=== PATIENT | male | born 1945 | race Caucasian/White ===

== ENCOUNTER 2017-06-24 09:36 | Inpatient (IN) | payer MEDICARE, OTHER ==
[2017-06-24] VITALS (12 sets, daily range): BP systolic 96–140; BP diastolic 53–68; PULSE 89–116; RESP 16–22; TEMP 97.2–103; O2SAT 88–99
[~2017-06-24] VITALS: Ht 185.4 cm; Wt 124.3 kg
--- NOTE | 2017-06-24 10:08 | PD ---
HPI Chief Complaint: Complaint Time Seen by Provider: 09:52 Travel History International Travel<30 days: No Contact w/Intl Traveler<30days: No Traveled to known affect area: No History of Present Illness HPI 72-year-old male normally living in [facility] here as a snowbird, presents emergency department with history of intermittent abdominal discomfort , nausea, 2 episodes of vomiting last evening, and question of hematuria with dark blood for the past 4 days. Denies flank pain or burning with urination. Patient has history of diverticulitis in the distant past, history of prostate cancer with total prostatectomy, denies history of gastritis, kidney stones, in the past. Patient states his pain is intermittent and in the lower quadrants and nonspecific. [place] well for approximately 2 weeks altogether, but worse in the last 4 days. He denies chest pain or cough or shortness of breath. Patient is a poor historian. Patient has no known drug allergies. [facility] Social History Alcohol Use: Yes Tobacco Use: No Substance Use: No Allergies-Medications (Allergen,Severity, Reaction): Coded Allergies: No Known Allergies (Unverified , 06/24/17) Reported Meds & Prescriptions Reported Meds & Active Scripts Active Reported Meloxicam 7.5 Mg Tab 7.5 Mg PO DAILY Losartan (Losartan Potassium) 25 Mg Tab 25 Mg PO DAILY Review of Systems ROS Limitations: Poor Historian Except as stated in HPI: all other systems reviewed are Neg General / Constitutional: Positive: Chills, No: Fever Eyes: No: Visual changes HENT: No: Headaches Cardiovascular: No: Chest Pain or Discomfort Respiratory: No: Shortness of Breath Gastrointestinal: Positive: Nausea, Vomiting, Abdominal Pain (See history of present illness mild intermittent), Loss of Appetite, No: Diarrhea, Hematemesis , Hematochezia, Constipation Genitourinary: Positive: Hematuria, No: Urgency, Frequency (See history of present illness), Dysuria, Nocturia, Decreased Urinary Output, Hesitancy, Dribbling, Incontinence Musculoskeletal: No: Myalgias, Arthralgias, Limited ROM, Pain Skin: No Rash Neurologic: No: Weakness Psychiatric: No: Depression Endocrine: No: Polydipsia Hematologic/Lymphatic: No: Easy Bruising Physical Exam Exam Limitations: Poor Historian Narrative GENERAL: Patient appears in no obvious distress. SKIN: Warm and dry. Normal color. Normal turgor. HEAD: Atraumatic. Normocephalic. EYES: Pupils equal and round. No scleral icterus. No injection or drainage. ENT: No nasal bleeding or discharge. Mucous membranes pink and moist. Pharynx is clear. Airways patent NECK: Trachea midline. Supple and nontender. CARDIOVASCULAR: Regular rate and rhythm. No murmurs gallops or rubs appreciated RESPIRATORY: No accessory muscle use. Clear to auscultation. Breath sounds equal bilaterally. GASTROINTESTINAL: Abdomen soft, mild if any nonspecific tenderness, nondistended. Hepatic and splenic margins not palpable. No CVA tenderness. MUSCULOSKELETAL: Extremities without clubbing, cyanosis, or edema. No obvious deformities. NEUROLOGICAL: Awake and alert. No obvious cranial nerve deficits. Motor grossly within normal limits. Five out of 5 muscle strength in the arms and legs. Normal speech. PSYCHIATRIC: Appropriate mood and affect; insight and judgment normal. Data Data Last Documented VS Vital Signs Date Time Temp Pulse Resp B/P (MAP) Pulse Ox O2 Delivery O2 Flow Rate FiO2 06/24/17 12:35 89 16 116/65 (82) 98 Room Air 06/24/17 09:38 99.0 Orders Orders Urinalysis - C+S If Indicated (06/24/17 09:54) Complete Blood Count With Diff (06/24/17 10:09) Comprehensive Metabolic Panel (06/24/17 10:09) Lipase (06/24/17 10:09) Lactic Acid (06/24/17 10:09) Prothrombin Time / Inr (Pt) (06/24/17 10:09) Act Partial Throm Time (Ptt) (06/24/17 10:09) Ct Abd/Pel W Iv Contrast(Rout) (06/24/17 10:09) Iv Access Insert/Monitor (06/24/17 10:09) Ecg Monitoring (06/24/17 10:09) Oximetry (06/24/17 10:09) NPO (06/24/17 10:09) Ondansetron Inj (Zofran Inj) (06/24/17 10:15) Sodium Chlor 0.9% 1000 Ml Inj (Ns 1000 M (06/24/17 10:09) Sodium Chloride 0.9% Flush (Ns Flush) (06/24/17 10:15) Chest, Single Ap (06/24/17 10:14) Urine Culture (06/24/17 10:15) Blood Culture (06/24/17 11:39) Piperacil-Tazo 4.5 Gm Premix (Zosyn 4.5 (06/24/17 11:45) Vancomycin Inj (Vancomycin Inj) (06/24/17 11:45) Iohexol 350 Inj (Omnipaque 350 Inj) (06/24/17 12:10) Admit Order (Ed Use Only) (06/24/17 13:16) Labs Laboratory Tests Test 06/24/17 10:15 06/24/17 10:20 White Blood Count 18.0 TH/MM3 Red Blood Count 3.82 MIL/MM3 Hemoglobin 12.5 GM/DL Hematocrit 34.7 % Mean Corpuscular Volume 90.8 FL Mean Corpuscular Hemoglobin 32.7 PG Mean Corpuscular Hemoglobin Concent 36.0 % Red Cell Distribution Width 15.0 % Platelet Count 181 TH/MM3 Mean Platelet Volume 7.1 FL Neutrophils (%) (Auto) 85.9 % Lymphocytes (%) (Auto) 5.1 % Monocytes (%) (Auto) 8.8 % Eosinophils (%) (Auto) 0.0 % Basophils (%) (Auto) 0.2 % Neutrophils # (Auto) 15.4 TH/MM3 Lymphocytes # (Auto) 0.9 TH/MM3 Monocytes # (Auto) 1.6 TH/MM3 Eosinophils # (Auto) 0.0 TH/MM3 Basophils # (Auto) 0.0 TH/MM3 CBC Comment AUTO DIFF Differential Total Cells Counted 100 Neutrophils % (Manual) 59 % Band Neutrophils % 27 % Lymphocytes % 3 % Monocytes % 10 % Neutrophils # (Manual) 15.7 TH/MM3 Metamyelocytes 1 % Differential Comment FINAL DIFF MANUAL Platelet Estimate NORMAL Platelet Morphology Comment NORMAL Red Cell Morphology Comment NORMAL Prothrombin Time 12.4 SEC Prothromb Time International Ratio 1.2 RATIO Activated Partial Thromboplast Time 26.8 SEC Urine Color DARK-RED Urine Turbidity MARKED Urine pH 6.0 Urine Specific [place] 1.023 Urine Protein 100 mg/dL Urine Glucose (UA) NEG mg/dL Urine Ketones TRACE mg/dL Urine Occult Blood LARGE Urine Nitrite NEG Urine Bilirubin NEG Urine Urobilinogen 2.0 MG/DL Urine Leukocyte Esterase NEG Urine RBC /hpf Urine WBC /hpf Urine WBC Clumps OCC Urine Bacteria MANY /hpf Urine Mucus FEW /lpf Urine Yeast (Budding) FEW Microscopic Urinalysis Comment CULTURE INDICATED Blood Urea Nitrogen 23 MG/DL Creatinine 1.24 MG/DL Random Glucose 176 MG/DL Total Protein 7.8 GM/DL Albumin 3.7 GM/DL Calcium Level 8.3 MG/DL Alkaline Phosphatase 65 U/L Aspartate Amino Transf (AST/SGOT) 26 U/L Alanine Aminotransferase (ALT/SGPT) 28 U/L Total Bilirubin 1.0 MG/DL Sodium Level 135 MEQ/L Potassium Level 3.5 MEQ/L Chloride Level 100 MEQ/L Carbon Dioxide Level 25.9 MEQ/L Anion Gap 9 MEQ/L Estimat Glomerular Filtration Rate 57 ML/MIN Lipase 838 U/L Lactic Acid Level 1.9 mmol/L MDM Medical Decision Making Medical Screen Exam Complete: Yes Emergency Medical Condition: Yes Differential Diagnosis Urinary tract infection. Hematuria. Kidney cancer. Possible metastatic prostate cancer. Diverticulitis. Pancreatitis. Gallbladder disease. Narrative Course Patient is very vague in his history and on exam. Labs ordered including CBC, CMP, lactic acid, lipase, and urinalysis. Abdominal/pelvis CT with IV contrast is ordered. Chest x-ray shows no acute process per radiologist. IV access is obtained and the patient is given 1000 mL normal saline bolus as well as 4 mg Zofran IV. Patient is not requesting any pain medicine currently. CBC significant for leukocytosis of 18.0, RBC is 3.82, hemoglobin is 12.5, hematocrit 34.7. Neutrophils of 85.9% Coagulation shows PT of 12.4, INR is 1.2. Chemistries significant for sodium of 135, BUN 23, GFR is 57, random glucose 176 , calcium is 8.3, and lipase is elevated at 838. Lactic acid is normal at 1.9 Urinalysis is dark red with marked turbidity, specific gravity 1.023, patient's greater than 100 protein, trace ketones, large occult blood with occasional white blood cell clumps per high-powered field. Many bacteria, and a few yeast. Urine culture is placed. Blood cultures 2 are ordered, and patient is given 4.5 mg Zosyn IV as well as [address] scan shows: FINDINGS: Lung base is are clear. Extensive coronary artery calcifications are noted. Moderate fatty replacement of the liver with 2 large well-circumscribed lesions evident probably cysts. The largest of these is in the left lobe and measures 4.9 cm. Spleen and pancreas are unremarkable Scattered small right renal cysts are evident with enlarged 7.3 cm cyst lower pole. Left kidney: 1 cm obstructing stone at left UVJ with perinephric stranding. Smaller 1 mm stone upper pole left kidney Marked perinephric stranding. 4.6 and her lower pole cysts. Retroperitoneum is unremarkable Scattered diverticuli in the pelvis scattered phleboliths Bladder decompressed Findings and patient discussed with Dr. aSul who sees the patient as well. Additional 1000 mL normal saline bolus was ordered. Call was placed to the hospitalist for admission. Sepsis Criteria SIRS Criteria (2 or more): Heart rate over 90, WBC > 07039, < 4000 or > 10% bands Sepsis Criteria (SIRS+source): Infect source susp/known Criteria Outcome: Meets SIRS criteria, Meets sepsis criteria Diagnosis Primary Impression: Sepsis Qualified Codes: A41.9 - Sepsis, unspecified organism Additional Impressions: Urinary tract infection Qualified Codes: N30.01 - Acute cystitis with hematuria Urinary tract obstruction by kidney stone Admitting Information Admitting Physician Requests: Admit Condition: Stable Martin Grissom Jun 24, 2017 10:08
[2017-06-24] MEDS ORDERED: SODIUM CHLOR 0.9% 1000 ML INJ 1,000 ML IV SCH (10:09)
[2017-06-24] MEDS ORDERED: LOSA25TA PO (10:10)
[2017-06-24] MEDS ORDERED: MELO7.5T27 PO (10:10)
[2017-06-24] MEDS ORDERED: SODIUM CHLORIDE 0.9% FLUSH 10 ML FLUSH IV FLUSH PRN (10:15)
[2017-06-24] MEDS ORDERED: ONDANSETRON HCL 4 MG/2 ML VIAL IVP ONE (10:15)
[2017-06-24 10:40] LABS: AUTOMATED NEUTROPHIL # 15.4 TH/MM3 (1.8-7.7); BASOPHIL % 0.2 % (0.0-2.0); HEMATOCRIT 34.7 % (39.0-51.0); HEMOGLOBIN 12.5 GM/DL (13.0-17.0); LYMPH % 5.1 % (9.0-44.0); LYMPHOCYTE # 0.9 TH/MM3 (1.0-4.8); MEAN CELL VOLUME 90.8 FL (80.0-100.0); MEAN CORPUSCULAR HEMOGLOBIN 32.7 PG (27.0-34.0); MEAN PLATELET VOLUME 7.1 FL (7.0-11.0); MONO % 8.8 % (0.0-8.0); MONOCYTE # 1.6 TH/MM3 (0-0.9); NEUT % 85.9 % (16.0-70.0); PLATELET COUNT 181 TH/MM3 (150-450); RED BLOOD COUNT 3.82 MIL/MM3 (4.50-5.90)
[2017-06-24 10:47] LABS: INTERNATIONAL NORMALIZED RATIO 1.2 RATIO; PROTHROMBIN TIME - PATIENT 12.4 SEC (9.8-11.6)
--- NOTE | 2017-06-24 10:51 | RADRPT ---
EXAM DATE/TIME: 06/24/2017 10:42 [facility] COMPARISON: No previous studies available for comparison. INDICATIONS : Cough. MEDICAL HISTORY : Carcinoma, prostatic. Hypertension SURGICAL HISTORY : None. ENCOUNTER: Initial ACUITY: 1 week PAIN SCORE: 0/10 LOCATION: Bilateral chest FINDINGS: The lungs are clear. The heart is minimally enlarged. The pulmonary vascularity is normal. There is n o evidence for infiltrate or failure. The portion of the bony skeleton visualized is unremarkable. CONCLUSION: Compensated cardiomegaly otherwise negative . Ayaz Salter MD FACR on June 24, 2017 at 10:48 Board Certified Radiologist. This report was verified electronically.
[2017-06-24 11:00] LABS: ALBUMIN 3.7 GM/DL (3.4-5.0); ALT (GPT) 28 U/L (12-78); AST (GOT) 26 U/L (15-37); BICARBONATE 25.9 MEQ/L (21.0-32.0); BLOOD UREA NITROGEN 23 MG/DL (7-18); CALCIUM 8.3 MG/DL (8.5-10.1); CHLORIDE 100 MEQ/L (98-107); CREATININE 1.24 MG/DL (0.60-1.30); GLOMERULAR FILTRATION RATE 57 ML/MIN (>89); GLUCOSE,RANDOM 176 MG/DL (74-106); SODIUM (NA) 135 MEQ/L (136-145)
[2017-06-24 11:02] LABS: ALKALINE PHOSPHATASE 65 U/L (45-117); TOTAL PROTEIN 7.8 GM/DL (6.4-8.2)
[2017-06-24 11:19] LABS: BACTERIA, URINE MANY /hpf; BILIRUBIN, URINE NEG (NEG); BLOOD, URINE LARGE (NEG); GLUCOSE,URINE NEG (NEG); KETONE, URINE TRACE mg/dL (NEG); MUCUS URINE FEW /lpf (OCC); NITRITE,URINE NEG (NEG); URINE LEUKOCYTE ESTERASE NEG (NEG); WHITE BLOOD CELL CLUMPS OCC
[2017-06-24 11:23] LABS: URINE COLOR DARK-RED (YELLW/STRAW)
[2017-06-24 11:41] LABS: BANDS 27 % (0-6); LYMPHOCYTES 3 % (9-44); METAMYELOCYTES 1 % (0-1); MONOCYTES 10 % (0-8); NEUTROPHIL # MANUAL DIFF 15.7 TH/MM3 (1.8-7.7); POLYS (SEG NEUTROPHILS) 59 % (16-70)
[2017-06-24] MEDS ORDERED: PIPERACIL-TAZO 4.5 GM PREMIX 100 ML IV ONE (11:45)
[2017-06-24] MEDS ORDERED: VANCOMYCIN INJ 1,000 MG in SODIUM CHLOR 0.9% 250 ML INJ 250 ML IV ONE (11:45)
[2017-06-24] MEDS ORDERED: IOHEXOL 350 MG/ML 10 ML VIAL (for RAD DIAG) IVCONTRAST ONE (12:10)
--- NOTE | 2017-06-24 12:29 | RADRPT ---
EXAM DATE/TIME: 06/24/2017 11:55 [facility] COMPARISON: No previous studies available for comparison. INDICATIONS : Hematuria today. IV CONTRAST: 97 cc Omnipaque 350 (iohexol) IV ORAL CONTRAST: No oral contrast ingested. RADIATION DOSE: 15.94 CTDIvol (mGy) MEDICAL HISTORY : Hypertension. Carcinoma, prostate. SURGICAL HISTORY : Prostatectomy. ENCOUNTER: Initial ACUITY: 1 day PAIN SCALE: 0/10 LOCATION: flank TECHNIQUE: Volumetric scanning of the abdomen and pelvis was performed. Using automated exposure control and ad justment of the mA and/or kV according to patient size, radiation dose was kept as low as reasonably achievable to obtain optimal diagnostic quality images. DICOM format image data is available electro nically for review and comparison. FINDINGS: Lung base is are clear. Extensive coronary artery calcifications are noted. Moderate fatty replacement of the liver with 2 large well-circumscribed lesions evident probably cyst s. The largest of these is in the left lobe and measures 4.9 cm. Spleen and pancreas are unremarkable Scattered small right renal cysts are evident with enlarged 7.3 cm cyst lower pole. Left kidney: 1 cm obstructing stone at left UVJ with perinephric stranding. Smaller 1 mm stone upper pole left ki dney Marked perinephric stranding. 4.6 and her lower pole cysts. Retroperitoneum is unremarkable Scattered diverticuli in the pelvis scattered phleboliths Bladder decompressed CONCLUSION: Obstructing 1 cm stone left UVJ with moderate perinephric stranding. 1 cm stone remaining upper pole Bilateral renal cysts Ayaz Salter MD FACR on June 24, 2017 at 12:20 Board Certified Radiologist. This report was verified electronically.
[2017-06-24] MEDS ORDERED: ONDANSETRON HCL 4 MG/2 ML VIAL IVP PRN (13:30)
[2017-06-24] MEDS ORDERED: BISACODYL 10 MG SUPP RECTAL PRN (13:30)
[2017-06-24] MEDS ORDERED: MAGNESIUM HYDROXIDE SUSP 30 ML CUP PO PRN (13:30)
[2017-06-24] MEDS ORDERED: SENNOSIDES 8.6 MG TAB PO PRN (13:30)
[2017-06-24] MEDS ORDERED: LACTULOSE SYRUP 20 GM/30 ML CUP PO PRN (13:30)
[2017-06-24] MEDS ORDERED: NALOXONE HCL 0.4 MG/ML AMP IV PUSH PRN (13:30)
--- NOTE | 2017-06-24 13:57 | PD ---
Data Data Last Documented VS Vital Signs Date Time Temp Pulse Resp B/P (MAP) Pulse Ox O2 Delivery O2 Flow Rate FiO2 06/24/17 12:35 89 16 116/65 (82) 98 Room Air 06/24/17 09:38 99.0 Orders Orders Urinalysis - C+S If Indicated (06/24/17 09:54) Complete Blood Count With Diff (06/24/17 10:09) Comprehensive Metabolic Panel (06/24/17 10:09) Lipase (06/24/17 10:09) Lactic Acid (06/24/17 10:09) Prothrombin Time / Inr (Pt) (06/24/17 10:09) Act Partial Throm Time (Ptt) (06/24/17 10:09) Ct Abd/Pel W Iv Contrast(Rout) (06/24/17 10:09) Iv Access Insert/Monitor (06/24/17 10:09) Ecg Monitoring (06/24/17 10:09) Oximetry (06/24/17 10:09) NPO (06/24/17 10:09) Ondansetron Inj (Zofran Inj) (06/24/17 10:15) Sodium Chlor 0.9% 1000 Ml Inj (Ns 1000 M (06/24/17 10:09) Sodium Chloride 0.9% Flush (Ns Flush) (06/24/17 10:15) Chest, Single Ap (06/24/17 10:14) Urine Culture (06/24/17 10:15) Blood Culture (06/24/17 11:39) Piperacil-Tazo 4.5 Gm Premix (Zosyn 4.5 (06/24/17 11:45) Vancomycin Inj (Vancomycin Inj) (06/24/17 11:45) Iohexol 350 Inj (Omnipaque 350 Inj) (06/24/17 12:10) Admit Order (Ed Use Only) (06/24/17 13:16) Labs Laboratory Tests Test 06/24/17 10:15 06/24/17 10:20 White Blood Count 18.0 TH/MM3 Red Blood Count 3.82 MIL/MM3 Hemoglobin 12.5 GM/DL Hematocrit 34.7 % Mean Corpuscular Volume 90.8 FL Mean Corpuscular Hemoglobin 32.7 PG Mean Corpuscular Hemoglobin Concent 36.0 % Red Cell Distribution Width 15.0 % Platelet Count 181 TH/MM3 Mean Platelet Volume 7.1 FL Neutrophils (%) (Auto) 85.9 % Lymphocytes (%) (Auto) 5.1 % Monocytes (%) (Auto) 8.8 % Eosinophils (%) (Auto) 0.0 % Basophils (%) (Auto) 0.2 % Neutrophils # (Auto) 15.4 TH/MM3 Lymphocytes # (Auto) 0.9 TH/MM3 Monocytes # (Auto) 1.6 TH/MM3 Eosinophils # (Auto) 0.0 TH/MM3 Basophils # (Auto) 0.0 TH/MM3 CBC Comment AUTO DIFF Differential Total Cells Counted 100 Neutrophils % (Manual) 59 % Band Neutrophils % 27 % Lymphocytes % 3 % Monocytes % 10 % Neutrophils # (Manual) 15.7 TH/MM3 Metamyelocytes 1 % Differential Comment FINAL DIFF MANUAL Platelet Estimate NORMAL Platelet Morphology Comment NORMAL Red Cell Morphology Comment NORMAL Prothrombin Time 12.4 SEC Prothromb Time International Ratio 1.2 RATIO Activated Partial Thromboplast Time 26.8 SEC Urine Color DARK-RED Urine Turbidity MARKED Urine pH 6.0 Urine Specific [place] 1.023 Urine Protein 100 mg/dL Urine Glucose (UA) NEG mg/dL Urine Ketones TRACE mg/dL Urine Occult Blood LARGE Urine Nitrite NEG Urine Bilirubin NEG Urine Urobilinogen 2.0 MG/DL Urine Leukocyte Esterase NEG Urine RBC /hpf Urine WBC /hpf Urine WBC Clumps OCC Urine Bacteria MANY /hpf Urine Mucus FEW /lpf Urine Yeast (Budding) FEW Microscopic Urinalysis Comment CULTURE INDICATED Blood Urea Nitrogen 23 MG/DL Creatinine 1.24 MG/DL Random Glucose 176 MG/DL Total Protein 7.8 GM/DL Albumin 3.7 GM/DL Calcium Level 8.3 MG/DL Alkaline Phosphatase 65 U/L Aspartate Amino Transf (AST/SGOT) 26 U/L Alanine Aminotransferase (ALT/SGPT) 28 U/L Total Bilirubin 1.0 MG/DL Sodium Level 135 MEQ/L Potassium Level 3.5 MEQ/L Chloride Level 100 MEQ/L Carbon Dioxide Level 25.9 MEQ/L Anion Gap 9 MEQ/L Estimat Glomerular Filtration Rate 57 ML/MIN Lipase 838 U/L Lactic Acid Level 1.9 mmol/L MDM Supervised Visit with BERTA: Yes Narrative Course The history, exam, and medical decision-making in the associated midlevel provider note were completed with my assistance. I reviewed and agree with the findings presented. I attest that I had a [id number] encounter with the patient on the same day, and personally performed and documented my assessment and findings in the medical record. *My assessment and Findings: This is a 72-year-old male who presents to the emergency department with generalized weakness, malaise, some urinary symptoms and abdominal discomfort. He is septic with a white count of 18 and has a urinary tract infection. He also has an obstructing stone at the left UVJ. Lactic acid was reassuring. Blood pressure has been stable. He was given broad -spectrum antibiotics and will be admitted for close monitoring and urology consultation. Diagnosis Primary Impression: Sepsis Qualified Codes: A41.9 - Sepsis, unspecified organism Additional Impressions: Urinary tract infection Qualified Codes: N30.01 - Acute cystitis with hematuria Urinary tract obstruction by kidney stone Condition: Stable Althea Saul MD Jun 24, 2017 13:57
--- NOTE | 2017-06-24 14:29 | HHI.HP ---
[facility] Primary Care Physician No Primary Care Physician Admission Diagnosis Sepsis/UTI/Renal Stone Diagnoses: (1) Hypertension (2) Urinary tract infection (3) Sepsis (4) Urinary tract obstruction by kidney stone Chief Complaint: Blood in urine Travel History International Travel<30 Days: No Contact w/Intl Traveler <30 Da: No Traveled to Known Affected Are: No Sepsis Criteria SIRS Criteria (2 or more): Heart rate over 90, WBC > 98521, < 4000 or > 10% bands Sepsis Criteria (SIRS+source): Infect source susp/known History of Present Illness The patient is a 72-year-old male who is visiting from [place]. He stays here for 2 months at a time. He presented to the emergency department with complaint of blood in his urine that started about 2 weeks ago. He has had intermittent abdominal discomfort. This has been worsening over the past few days. He denies flank pain or dysuria. He denies history of kidney stones. He has had chills, but no fever. Review of Systems Constitutional: COMPLAINS OF: Chills, DENIES: Fever, Night Sweats Eyes: DENIES: Blurred vision, Vision loss Ears, nose, mouth, throat: DENIES: Hearing loss Respiratory: DENIES: Cough, Wheezing, Sputum production, Shortness of breath Cardiovascular: DENIES: Chest pain, Palpitations, Dyspnea on Exertion, Lower Extremity Edema Gastrointestinal: COMPLAINS OF: Abdominal pain, DENIES: Constipation, Diarrhea , Nausea, Vomiting Genitourinary: COMPLAINS OF: Urinary frequency, Hematuria, DENIES: Urinary incontinence, Urgency, Dysuria, Nocturia Musculoskeletal: DENIES: Joint pain, Muscle aches Integumentary: DENIES: Pruritus, Rash Hematologic/lymphatic: DENIES: Bruising Neurologic: DENIES: Headache Past Family Social History Past Medical History Hypertension History of prostate cancer Past Surgical History Prostatectomy Tonsillectomy Reported Medications Meloxicam 7.5 Mg Tab 7.5 Mg PO DAILY Losartan (Losartan Potassium) 25 Mg Tab 25 Mg PO DAILY Allergies: Coded Allergies: No Known Allergies (Unverified , 06/24/17) Family History Denies significant family history Social History Denies alcohol, tobacco, or illicit drug use. Physical Exam Vital Signs Vital Signs Date Time Temp Pulse Resp B/P (MAP) Pulse Ox O2 Delivery O2 Flow Rate FiO2 06/24/17 12:35 89 16 116/65 (82) 98 Room Air 06/24/17 09:38 99.0 95 19 127/60 (82) 91 Physical Exam GENERAL: Obese elderly male in no acute distress. HEENT: Normocephalic, atraumatic. Pupils equal, round and reactive. Extraocular movements intact. No scleral icterus. No injection or drainage. Oropharynx is clear. Mucous membranes are moist. CARDIOVASCULAR: Regular rate and rhythm without murmurs, gallops, or rubs. RESPIRATORY: Clear to auscultation. No wheezes, rales, or rhonchi. Breathing is non-labored. GASTROINTESTINAL: Abdomen soft, non-tender, nondistended. No CVA tenderness. EXTREMITIES: No lower extremity edema. No calf tenderness. PSYCH: Alert and oriented x 3. Laboratory Laboratory Tests Test 06/24/17 10:15 06/24/17 10:20 White Blood Count 18.0 Red Blood Count 3.82 Hemoglobin 12.5 Hematocrit 34.7 Mean Corpuscular Volume 90.8 Mean Corpuscular Hemoglobin 32.7 Mean Corpuscular Hemoglobin Concent 36.0 Red Cell Distribution Width 15.0 Platelet Count 181 Mean Platelet Volume 7.1 Neutrophils (%) (Auto) 85.9 Lymphocytes (%) (Auto) 5.1 Monocytes (%) (Auto) 8.8 Eosinophils (%) (Auto) 0.0 Basophils (%) (Auto) 0.2 Neutrophils # (Auto) 15.4 Lymphocytes # (Auto) 0.9 Monocytes # (Auto) 1.6 Eosinophils # (Auto) 0.0 Basophils # (Auto) 0.0 CBC Comment AUTO DIFF Differential Total Cells Counted 100 Neutrophils % (Manual) 59 Band Neutrophils % 27 Lymphocytes % 3 Monocytes % 10 Neutrophils # (Manual) 15.7 Metamyelocytes 1 Differential Comment FINAL DIFF MANUAL Platelet Estimate NORMAL Platelet Morphology Comment NORMAL Red Cell Morphology Comment NORMAL Prothrombin Time 12.4 Prothromb Time International Ratio 1.2 Activated Partial Thromboplast Time 26.8 Urine Color DARK-RED Urine Turbidity MARKED Urine pH 6.0 Urine Specific [place] 1.023 Urine Protein 100 Urine Glucose (UA) NEG Urine Ketones TRACE Urine Occult Blood LARGE Urine Nitrite NEG Urine Bilirubin NEG Urine Urobilinogen 2.0 Urine Leukocyte Esterase NEG Urine RBC Urine WBC Urine WBC Clumps OCC Urine Bacteria MANY Urine Mucus FEW Urine Yeast (Budding) FEW Microscopic Urinalysis Comment CULTURE INDICATED Blood Urea Nitrogen 23 Creatinine 1.24 Random Glucose 176 Total Protein 7.8 Albumin 3.7 Calcium Level 8.3 Alkaline Phosphatase 65 Aspartate Amino Transf (AST/SGOT) 26 Alanine Aminotransferase (ALT/SGPT) 28 Total Bilirubin 1.0 Sodium Level 135 Potassium Level 3.5 Chloride Level 100 Carbon Dioxide Level 25.9 Anion Gap 9 Estimat Glomerular Filtration Rate 57 Lipase 838 Lactic Acid Level 1.9 Date/Time Source Procedure Growth Status 06/24/17 12:10 Blood Peripheral Aerobic Blood Culture Pending Received 06/24/17 12:10 Blood Peripheral Anaerobic Blood Culture Pending Received 06/24/17 10:15 Urine Random Urine Urine Culture Pending Received Result Diagram: 06/24/17 1015 06/24/17 1015 Imaging Last Impressions Chest X-Ray 06/24/17 1014 Signed Impressions: Service Date/Time: Saturday, June 24, 2017 10:42 - CONCLUSION: Compensated cardiomegaly otherwise negative . Ayaz Salter MD FACR Abdomen/Pelvis CT 06/24/17 1009 Signed Impressions: Service Date/Time: Saturday, June 24, 2017 11:55 - CONCLUSION: Obstructing 1 cm stone left UVJ with moderate perinephric stranding. 1 cm stone remaining upper pole Bilateral renal cysts Ayaz Salter MD FACR Caprini VTE Risk Assessment Caprini VTE Risk Assessment: Mod/High Risk (score >= 2) Caprini Risk Assessment Model Point Value = 1 Point Value = 2 Point Value = 3 Point Value = 5 Age 41-60 Minor surgery BMI > 25 kg/m2 Swollen legs Varicose veins or History of unexplained or recurrent spontaneous Oral contraceptives or hormone replacement Sepsis (< 1 month) Serious lung disease, including pneumonia (< 1 month) Abnormal pulmonary function Acute myocardial infarction Congestive heart failure (< 1 month) History of inflammatory bowel disease Medical patient at bed rest Age 61-74 Arthroscopic surgery Major open surgery (> 45 min) Laparoscopic surgery (> 45 min) Malignancy Confined to bed (> 72 hours) Immobilizing plaster cast Central venous access Age >= 75 History of VTE Family history of VTE Factor V Leiden Prothrombin [id number] Lupus anticoagulant Anticardiolipin antibodies Elevated serum homocysteine Heparin-induced thrombocytopenia Other congenital or acquired thrombophilia Stroke (< 1 month) Elective arthroplasty Hip, pelvis, or leg fracture Acute spinal cord injury (< 1 month) Prophylaxis Regimen Total Risk Factor Score Risk Level Prophylaxis Regimen 0-1 Low Early ambulation 2 Moderate Order ONE of the following: *Sequential Compression Device (SCD) *Heparin 5000 units SQ BID 3-4 Higher Order ONE of the following medications: *Heparin 5000 units SQ TID *Enoxaparin/Lovenox 40 mg SQ daily (WT < 150 kg, CrCl > 30 mL/min) *Enoxaparin/Lovenox 30 mg SQ daily (WT < 150 kg, CrCl > 10-29 mL/min) *Enoxaparin/Lovenox 30 mg SQ BID (WT < 150 kg, CrCl > 30 mL/min) AND/OR *Sequential Compression Device (SCD) 5 or more Highest Order ONE of the following medications: *Heparin 5000 units SQ TID (Preferred with Epidurals) *Enoxaparin/Lovenox 40 mg SQ daily (WT < 150 kg, CrCl > 30 mL/min) *Enoxaparin/Lovenox 30 mg SQ daily (WT < 150 kg, CrCl > 10-29 mL/min) *Enoxaparin/Lovenox 30 mg SQ BID (WT < 150 kg, CrCl > 30 mL/min) AND *Sequential Compression Device (SCD) Assessment and Plan Assessment and Plan 1. Sepsis secondary to urinary tract infection: Due to obstructing stone. Continue IV antibiotics. Urine culture and blood cultures are pending. 2. Nephrolithiasis with obstruction: Patient presented with hematuria. Imaging shows obstructing stone. Urology consultation requested. 3. Hypertension: Continue losartan. 4. Acute kidney injury: Secondary to urinary tract obstruction. Continue IV fluids. Monitor labs. 5. DVT prophylaxis: SCDs, YUDI hose. Problem Qualifiers (1) Urinary tract infection: Qualified Codes: N30.01 - Acute cystitis with hematuria (2) Sepsis: Qualified Codes: A41.9 - Sepsis, unspecified organism Cole Carrasco MD Jun 24, 2017 14:29
[2017-06-24] MEDS: NS + KCL 20 MEQ INJ 1,000 ML IV SCH (14:44)
[2017-06-24] MEDS: ACETAMINOPHEN 325 MG TAB PO PRN (14:44)
[2017-06-24] MEDS ORDERED: SODIUM CHLOR 0.9% 1000 ML INJ 1,000 ML IV ONE (14:45)
[2017-06-24] MEDS ORDERED: ACETAMINOPHEN 1000 MG/100 ML 65 ML IV ONE (16:00)
--- NOTE | 2017-06-24 16:38 | HHI.PR ---
Subjective Remarks NOT SEEN Objective Vitals Vital Signs Date Time Temp Pulse Resp B/P (MAP) Pulse Ox O2 Delivery O2 Flow Rate FiO2 06/24/17 16:06 06/24/17 15:45 103.0 114 22 131/68 (89) 94 Nasal Cannula 4.00 06/24/17 14:36 101.9 108 16 140/68 (92) 98 Room Air 06/24/17 14:01 22 94 Nasal Cannula 4.00 06/24/17 14:00 22 88 Room Air 06/24/17 12:35 89 16 116/65 (82) 98 Room Air 06/24/17 09:38 99.0 95 19 127/60 (82) 91 I/O 06/23/17 06/23/17 06/23/17 06/24/17 06/24/17 06/24/17 06:59 14:59 22:59 06:59 14:59 22:59 Intake Total 1000 ml 1350 ml Output Total 400 ml 300 ml Balance 600 ml 1050 ml Intake IV Total 1000 ml 1350 ml Output Urine Total 400 ml 300 ml # Voids 2 1 Result Diagram: 06/24/17 1015 06/24/17 1015 Imaging Last Impressions Chest X-Ray 06/24/17 1014 Signed Impressions: Service Date/Time: Saturday, June 24, 2017 10:42 - CONCLUSION: Compensated cardiomegaly otherwise negative . Ayaz Salter MD FACR Abdomen/Pelvis CT 06/24/17 1009 Signed Impressions: Service Date/Time: Saturday, June 24, 2017 11:55 - CONCLUSION: Obstructing 1 cm stone left UVJ with moderate perinephric stranding. 1 cm stone remaining upper pole Bilateral renal cysts Ayaz Salter MD FACR Objective Remarks GENERAL: Obese elderly male in no acute distress. HEENT: Normocephalic, atraumatic. Pupils equal, round and reactive. Extraocular movements intact. No scleral icterus. No injection or drainage. Oropharynx is clear. Mucous membranes are moist. CARDIOVASCULAR: Regular rate and rhythm without murmurs, gallops, or rubs. RESPIRATORY: Clear to auscultation. No wheezes, rales, or rhonchi. Breathing is non-labored. GASTROINTESTINAL: Abdomen soft, non-tender, nondistended. No CVA tenderness. EXTREMITIES: No lower extremity edema. No calf tenderness. PSYCH: Alert and oriented x 3. Procedures none A/P Problem List: (1) Hypertension ICD Code: I10 - Essential (primary) hypertension (2) Urinary tract infection ICD Code: N39.0 - Urinary tract infection, site not specified Status: Acute (3) Sepsis ICD Code: A41.9 - Sepsis, unspecified organism Status: Acute (4) Urinary tract obstruction by kidney stone ICD Code: N20.0 - Calculus of kidney; N13.8 - Other obstructive and reflux uropathy Status: Acute Assessment and Plan 1. Sepsis secondary to urinary tract infection: Due to obstructing stone. Continue IV antibiotics. Urine culture and blood cultures are pending. 2. Nephrolithiasis with obstruction: Patient presented with hematuria. Imaging shows obstructing stone. Urology consultation requested. 3. Hypertension: Continue losartan. 4. Azotemia: Secondary to urinary tract obstruction. Continue IV fluids. Monitor labs. 5. Elevated lipase DVT prophylaxis: SCDs, YUDI hose. No pharmacological agents 2/2 hematuria Problem Qualifiers (1) Urinary tract infection: Qualified Codes: N30.01 - Acute cystitis with hematuria (2) Sepsis: Qualified Codes: A41.9 - Sepsis, unspecified organism Nathanael Haas MD Jun 24, 2017 16:38
[2017-06-24] MEDS: LEVOFLOXACIN 750 MG PREMIX INJ 150 ML IV SCH (16:58)
[2017-06-24] MEDS: DOCUSATE SODIUM 50 MG/SENNA 8.6 MG TAB PO SCH (20:23)
[2017-06-25] VITALS (12 sets, daily range): BP systolic 82–135; BP diastolic 42–72; PULSE 77–116; RESP 16–22; TEMP 98.4–101.2; O2SAT 92–98
[2017-06-25] MEDS: ACETAMINOPHEN 325 MG TAB PO PRN ×2 (01:13→20:44)
[2017-06-25] MEDS: NS + KCL 20 MEQ INJ 1,000 ML IV SCH ×3 (05:17→21:59)
[2017-06-25 05:56] LABS: AUTOMATED NEUTROPHIL # 10.4 TH/MM3 (1.8-7.7); BASOPHIL % 0.2 % (0.0-2.0); EOSINOPHIL % 0.1 % (0.0-4.0); HEMATOCRIT 32.1 % (39.0-51.0); HEMOGLOBIN 11.4 GM/DL (13.0-17.0); LYMPH % 6.7 % (9.0-44.0); LYMPHOCYTE # 0.8 TH/MM3 (1.0-4.8); MEAN CELL VOLUME 91.2 FL (80.0-100.0); MEAN CORPUSCULAR HEMOGLOBIN 32.4 PG (27.0-34.0); MEAN CORPUSCULAR HGB CONC 35.6 % (32.0-36.0); MEAN PLATELET VOLUME 7.4 FL (7.0-11.0); MONOCYTE # 1.3 TH/MM3 (0-0.9); PLATELET COUNT 162 TH/MM3 (150-450); RED BLOOD COUNT 3.52 MIL/MM3 (4.50-5.90); WHITE BLOOD COUNT 12.6 TH/MM3 (4.0-11.0)
[2017-06-25 06:16] LABS: BICARBONATE 24.2 MEQ/L (21.0-32.0); CALCIUM 8.3 MG/DL (8.5-10.1); CREATININE 1.35 MG/DL (0.60-1.30)
[2017-06-25] MEDS: LOSARTAN 25 MG TAB PO SCH (08:26)
[2017-06-25] MEDS: DOCUSATE SODIUM 50 MG/SENNA 8.6 MG TAB PO SCH ×2 (08:26→20:43)
[2017-06-25] MEDS ORDERED: SODIUM CHLOR 0.9% 250 ML INJ 250 ML IV ONE (09:45)
--- NOTE | 2017-06-25 12:28 | HHI.PR ---
Subjective Remarks Follow-up sepsis. Complains of mild lower abdominal pain. Discussed with RN, the pressure was slightly low this morning denies dizziness. Fluid bolus ordered and increase IV fluids. Objective Vitals Vital Signs Date Time Temp Pulse Resp B/P (MAP) Pulse Ox O2 Delivery O2 Flow Rate FiO2 06/25/17 12:08 98.7 80 18 135/58 (83) 98 06/25/17 10:58 99/57 (71) 06/25/17 08:48 Nasal Cannula 2.00 06/25/17 08:00 98.4 88 18 83/46 (58) 97 06/25/17 08:00 77 06/25/17 04:01 101 06/25/17 04:00 99.2 82 16 95/55 (68) 95 06/25/17 00:02 116 06/25/17 00:00 101.2 112 18 101/50 (67) 93 06/24/17 20:00 98.0 101 18 96/53 (67) 99 06/24/17 20:00 Nasal Cannula 2.00 06/24/17 19:55 116 06/24/17 18:36 97.2 06/24/17 17:30 116 06/24/17 17:09 100.5 06/24/17 16:15 102.4 114 21 105/62 (76) 89 06/24/17 16:06 06/24/17 15:45 103.0 114 22 131/68 (89) 94 Nasal Cannula 4.00 06/24/17 14:36 101.9 108 16 140/68 (92) 98 Room Air 06/24/17 14:01 22 94 Nasal Cannula 4.00 06/24/17 14:00 22 88 Room Air 06/24/17 12:35 89 16 116/65 (82) 98 Room Air I/O 06/24/17 06/24/17 06/24/17 06/25/17 06/25/17 06/25/17 07:00 15:00 23:00 07:00 15:00 23:00 Intake Total 1000 ml 2020 ml 882 ml 250 ml Output Total 400 ml 300 ml 850 ml Balance 600 ml 1720 ml 32 ml 250 ml Intake Oral 240 ml IV Total 1000 ml 1780 ml 882 ml 250 ml Output Urine Total 400 ml 300 ml 850 ml # Voids 2 1 Result Diagram: 06/25/17 0435 06/25/17 0435 Imaging Last Impressions Chest X-Ray 06/24/17 1014 Signed Impressions: Service Date/Time: Saturday, June 24, 2017 10:42 - CONCLUSION: Compensated cardiomegaly otherwise negative . Ayaz Salter MD FACR Abdomen/Pelvis CT 06/24/17 1009 Signed Impressions: Service Date/Time: Saturday, June 24, 2017 11:55 - CONCLUSION: Obstructing 1 cm stone left UVJ with moderate perinephric stranding. 1 cm stone remaining upper pole Bilateral renal cysts Ayaz Salter MD FACR Objective Remarks GENERAL: Obese elderly male in no acute distress. He looks dry HEENT: Normocephalic, atraumatic. Pupils equal, round and reactive. Extraocular movements intact. No scleral icterus. No injection or drainage. Oropharynx is clear. Dry oral mucosa. CARDIOVASCULAR: Regular rate and rhythm without murmurs, gallops, or rubs. RESPIRATORY: Clear to auscultation. No wheezes, rales, or rhonchi. Breathing is non-labored. GASTROINTESTINAL: Abdomen soft, non-tender, nondistended. No CVA tenderness. EXTREMITIES: No lower extremity edema. No calf tenderness. PSYCH: Alert and oriented x 3. Procedures none A/P Problem List: (1) Hypertension ICD Code: I10 - Essential (primary) hypertension (2) Urinary tract infection ICD Code: N39.0 - Urinary tract infection, site not specified Status: Acute (3) Sepsis ICD Code: A41.9 - Sepsis, unspecified organism Status: Acute (4) Urinary tract obstruction by kidney stone ICD Code: N20.0 - Calculus of kidney; N13.8 - Other obstructive and reflux uropathy Status: Acute Assessment and Plan 1. Sepsis secondary to urinary tract infection: Due to obstructing stone. Continue IV Levaquin. Urine culture pending and blood cultures 1 out of 4 with Escherichia coli. Consult infectious disease 2. Nephrolithiasis with obstruction: Patient presented with hematuria. Imaging shows obstructing stone. Urology consultation requested. Continue IV hydration 3. Hypertension: Continue losartan. 4. Azotemia: Secondary to urinary tract obstruction and dehydration. Patient's blood pressure was slightly low this morning, fluid bolus given an increase IV fluids. Monitor labs. 5. Elevated lipase. Improved denies epigastric pain and tenderness 6. NIA. Continue C Pap DVT prophylaxis: SCDs, YUDI hose. No pharmacological agents 2/2 hematuria Problem Qualifiers (1) Urinary tract infection: Qualified Codes: N30.01 - Acute cystitis with hematuria (2) Sepsis: Qualified Codes: A41.9 - Sepsis, unspecified organism Nathanael Haas MD Jun 25, 2017 12:28
[2017-06-25] MEDS ORDERED: GABA300C5 PO (15:12)
[2017-06-25] MEDS: LEVOFLOXACIN 750 MG PREMIX INJ 150 ML IV SCH (15:13)
--- NOTE | 2017-06-25 15:14 | PD.CONS ---
History of Present Illness Service Infectious Disease Consult Requested By Dr Haas Reason for Consult Evaluate patient with bacteremia Primary Care Physician No Primary Care Physician Diagnoses: History of Present Illness Patient seen and examined. Records reviewed. Patient is a 72-year-old male, admitted to the hospital for further evaluation of persistent hematuria, and intermittent abdominal discomfort. He gives a history of previous prostate cancer and he had undergone prostatectomy. He has no prior problem with hematuria. He lives in [place], and his down here in [place] and he stays here for at least 2 months at a time about once a year. About 3 weeks ago, he started developing hematuria. He denies any problem with dysuria. About 56 days ago he started experiencing some abdominal discomfort in the suprapubic region. Also experience some chills and sweats, although he did not take his temperature. He had several episodes of vomiting several days prior to admission. He has chronic back pain, and has not really experience any worsening of his back pain. He has no prior history of hematuria, or history of kidney stone. Patient presented to the hospital, and since admission he has had fevers up to 103. Urinalysis did show presence of RBC and WBC. Urine culture is pending. 1 out of 2 blood culture has Escherichia coli. CT of the abdomen and pelvis showing an obstructing stone in the left UPJ. There was no mention of any hydronephrosis. Patient currently is still having some discomfort in the suprapubic region. He has not had any vomiting. Temperatures are down. His initial WBC was elevated , and it's improving. His creatinine is elevated. Infectious disease consultation has been requested to evaluate the patient with bacteremia Review of Systems Constitutional: COMPLAINS OF: Chills, Night Sweats Eyes: DENIES: Eye pain Ears, nose, mouth, throat: DENIES: Nasal discharge, Oral lesions, Throat pain, Sinus Pain Respiratory: DENIES: Cough, Shortness of breath Cardiovascular: DENIES: Chest pain, Palpitations, Dyspnea on Exertion Gastrointestinal: COMPLAINS OF: Vomiting, DENIES: Abdominal pain, Diarrhea, Nausea Genitourinary: COMPLAINS OF: Hematuria, DENIES: Dysuria Musculoskeletal: COMPLAINS OF: Back pain, DENIES: Joint pain Integumentary: DENIES: Rash Hematologic/lymphatic: DENIES: Lymphadenopathy Neurologic: DENIES: Localized weakness Psychiatric: DENIES: Hallucinations Past Family Social History Allergies: Coded Allergies: No Known Allergies (Unverified , 2/5/18) Past Medical History Hypertension History of prostate cancer Past Surgical History Prostatectomy Tonsillectomy Active Ordered Medications Current Medications Medications (Trade) Dose Ordered Sig/Jenny Route Start Time Stop Time Status Last Admin (NS Flush) 2 ml UNSCH PRN IV FLUSH 06/24/17 10:15 (Tylenol) 650 mg Q4H PRN PO 06/24/17 13:30 06/25/17 01:13 (Zofran Inj) 4 mg Q6H PRN IVP 06/24/17 13:30 06/24/17 16:21 (Narcan Inj) 0.4 mg UNSCH PRN IV PUSH 06/24/17 13:30 (Oksana-Colace) 1 tab BID PO 06/24/17 21:00 06/25/17 08:26 (Milk Of Magnesia Liq) 30 ml Q12H PRN PO 06/24/17 13:30 (Senokot) 17.2 mg Q12H PRN PO 06/24/17 13:30 (Dulcolax Supp) 10 mg DAILY PRN RECTAL 06/24/17 13:30 (Lactulose Liq) 30 ml DAILY PRN PO 06/24/17 13:30 (Cozaar) 25 mg DAILY PO 06/25/17 09:00 06/25/17 08:26 Potassium Chloride/Sodium Chloride 1,000 ml @ 100 mls/hr Q10H IV 06/24/17 14:30 06/25/17 05:17 Levofloxacin/ Dextrose 150 ml @ 100 mls/hr Q24H IV 06/24/17 16:00 06/24/17 16:58 Family History Non- contributory Social History Lives in [place] Stays here in a condo for 2 months in the last several years No smoking No ETOH abuse No illicit drugs Physical Exam Vital Signs Vital Signs Date Time Temp Pulse Resp B/P (MAP) Pulse Ox O2 Delivery O2 Flow Rate FiO2 06/25/17 12:08 98.7 80 18 135/58 (83) 98 06/25/17 12:00 82 06/25/17 10:58 99/57 (71) 06/25/17 08:48 Nasal Cannula 2.00 06/25/17 08:00 98.4 88 18 83/46 (58) 97 06/25/17 08:00 77 06/25/17 04:01 101 06/25/17 04:00 99.2 82 16 95/55 (68) 95 06/25/17 00:02 116 06/25/17 00:00 101.2 112 18 101/50 (67) 93 06/24/17 20:00 98.0 101 18 96/53 (67) 99 06/24/17 20:00 Nasal Cannula 2.00 06/24/17 19:55 116 06/24/17 18:36 97.2 06/24/17 17:30 116 06/24/17 17:09 100.5 06/24/17 16:15 102.4 114 21 105/62 (76) 89 06/24/17 16:06 06/24/17 15:45 103.0 114 22 131/68 (89) 94 Nasal Cannula 4.00 Physical Exam GENERAL: Patient is an obese, well-developed male, awake and alert, not in respiratory distress. SKIN: Cool and dry. No generalized rash, no ecchymoses and no evidence of embolic lesions. HEAD: Atraumatic. Normocephalic. No temporal wasting, or tenderness. EYES: [place] conjunctiva. No petechia or hemorrhage. Pupils equal, round and reactive to light. Extraocular movements full and intact. No scleral icterus. No injection or drainage. EARS, NOSE AND THROAT: Nose without bleeding or purulent nasal discharge. No sinus tenderness. Mucous membranes pink and moist. No oral lesions noted. NECK: Trachea midline. Supple and not tender, no meningeal signs CARDIOVASCULAR: Regular rate and rhythm. No murmurs, rubs or gallops heard RESPIRATORY: Clear to auscultation. Breath sounds equal bilaterally. No rales , wheezing or rhonchi. Decreased breath sounds at bases ABDOMEN: Soft, obese, mildly tender on R side, nondistended. Bowel sounds present and normoactive. No guarding. No rebound. No suprapubic tenderness. No organomegaly. EXTREMITIES: No clubbing, cyanosis, or edema. No joint effusion, has good ROM. No calf tenderness. Well perfused and warm. NEUROLOGICAL: Awake and alert. Cranial nerves grossly intact. Motor grossly within normal limits. PSYCHIATRIC: Normal affect, calm and cooperative. LINE: No evidence of infection Laboratory Laboratory Tests Test 06/25/17 04:35 White Blood Count 12.6 Red Blood Count 3.52 Hemoglobin 11.4 Hematocrit 32.1 Mean Corpuscular Volume 91.2 Mean Corpuscular Hemoglobin 32.4 Mean Corpuscular Hemoglobin Concent 35.6 Red Cell Distribution Width 15.0 Platelet Count 162 Mean Platelet Volume 7.4 Neutrophils (%) (Auto) 83.0 Lymphocytes (%) (Auto) 6.7 Monocytes (%) (Auto) 10.0 Eosinophils (%) (Auto) 0.1 Basophils (%) (Auto) 0.2 Neutrophils # (Auto) 10.4 Lymphocytes # (Auto) 0.8 Monocytes # (Auto) 1.3 Eosinophils # (Auto) 0.0 Basophils # (Auto) 0.0 CBC Comment DIFF FINAL Differential Comment Blood Urea Nitrogen 24 Creatinine 1.35 Random Glucose 111 Calcium Level 8.3 Sodium Level 136 Potassium Level 3.5 Chloride Level 103 Carbon Dioxide Level 24.2 Anion Gap 9 Estimat Glomerular Filtration Rate 52 Lipase 350 Date/Time Source Procedure Growth Status 06/24/17 12:10 Blood Peripheral Aerobic Blood Culture - Preliminary NO GROWTH IN 1 DAY Resulted 06/24/17 12:10 Blood Peripheral Anaerobic Blood Culture - Preliminary NO GROWTH IN 1 DAY Resulted 06/24/17 10:15 Urine Random Urine Urine Culture Pending Received Result Diagram: 06/25/17 0435 06/25/17 0435 Imaging RADIOLOGY STUDIES/FILMS REVIEWED Chest X-Ray 06/24/17 1014 Signed Impressions: Service Date/Time: Saturday, June 24, 2017 10:42 - CONCLUSION: Compensated cardiomegaly otherwise negative . Ayaz Salter MD FACR Abdomen/Pelvis CT 06/24/17 1009 Signed Impressions: Service Date/Time: Saturday, June 24, 2017 11:55 - CONCLUSION: Obstructing 1 cm stone left UVJ with moderate perinephric stranding. 1 cm stone remaining upper pole Bilateral renal cysts Ayaz Salter MD FACR Assessment and Plan Assessment and Plan IMPRESSION E coli sepsis, likely source - UA with blood and WBC, has obstructing stone on L, no hydro, ?early Hematuria, due to stone Hx prostate CA, S/P prostatectomy Renal insufficiency RECOMMENDATION Add Zosyn Continue Levaquin for now Await urology evaluation Follow C/S and adjust Abx Check bladder scan to check residual Will determine course of Abx ocne work-up is completed I will follow along with you Thank you for this consultation Discussed Condition With Explained plan to patient and sister (She is an [employer]) Rola Ellison MD Jun 25, 2017 15:14
--- NOTE | 2017-06-25 15:16 | PD.CONS ---
HPI Service Urology Consult Requested By Dr. Carrasco Reason for Consult Obstructing left proximal ureteral calculus Primary Care Physician No Primary Care Physician Diagnosis: (1) Hypertension ICD Code: I10 - Essential (primary) hypertension (2) Urinary tract infection ICD Code: N39.0 - Urinary tract infection, site not specified (3) Sepsis ICD Code: A41.9 - Sepsis, unspecified organism (4) Urinary tract obstruction by kidney stone ICD Code: N20.0 - Calculus of kidney; N13.8 - Other obstructive and reflux uropathy History of Present Illness 72-year-old gentleman with history prostate cancer who presented to the emergency room with complaints of hematuria and intermittent left-sided abdominal discomfort. The abdominal discomfort has been worsening for several days prior to admission. Workup in the emergency room included a CT scan stone protocol that demonstrated a 1 cm left proximal ureteral calculus causing moderate hydronephrosis with perinephric stranding. White cell count was elevated at 18,000 on admission and is subsequently diminished down to 12,000 since antibiotic therapy was implemented. Urinalysis did demonstrate the presence of a large amount of white cells and red cells.. Preliminary urine culture is pending however blood cultures are consistent with E. coli. Patient has remained afebrile since admission. At the time of consultation, the pain was well controlled. Patient denies a prior history of nephrolithiasis. He was treated for prostate cancer with a radical retropubic prostatectomy approximately 5 years ago in [place] without sequelae. Review of Systems Constitutional: DENIES: Fever, Chills Gastrointestinal: COMPLAINS OF: Abdominal pain (Left side) Genitourinary: COMPLAINS OF: Hematuria Musculoskeletal: COMPLAINS OF: Back pain (Left side) Except as stated in HPI: all other systems reviewed are Neg Past Family Social History Past Medical History Prostate cancer Hypertension Past Surgical History Status post radical retropubic prostatectomy approximately 5 years ago Status post tonsillectomy Reported Medications Refer to EMR Allergies: Coded Allergies: No Known Allergies (Unverified , 06/24/17) Active Ordered Medications Refer to EMR Family History Reviewed and noncontributory Social History Denies tobacco, alcohol intravenous drug abuse history Physical Exam Vital Signs Date Time Temp Pulse Resp B/P (MAP) Pulse Ox O2 Delivery O2 Flow Rate FiO2 06/25/17 12:08 98.7 80 18 135/58 (83) 98 06/25/17 12:00 82 2/6/18 10:58 99/57 (71) 06/25/17 08:48 Nasal Cannula 2.00 06/25/17 08:00 98.4 88 18 83/46 (58) 97 06/25/17 08:00 77 06/25/17 04:01 101 06/25/17 04:00 99.2 82 16 95/55 (68) 95 06/25/17 00:02 116 06/25/17 00:00 101.2 112 18 101/50 (67) 93 06/24/17 20:00 98.0 101 18 96/53 (67) 99 06/24/17 20:00 Nasal Cannula 2.00 06/24/17 19:55 116 06/24/17 18:36 97.2 06/24/17 17:30 116 06/24/17 17:09 100.5 06/24/17 16:15 102.4 114 21 105/62 (76) 89 06/24/17 16:06 06/24/17 15:45 103.0 114 22 131/68 (89) 94 Nasal Cannula 4.00 Physical Exam GENERAL: This is a well-nourished, well-developed patient, in no apparent distress. SKIN: No rashes, ecchymoses or lesions. Cool and dry. HEAD: Atraumatic. Normocephalic. No temporal or scalp tenderness. EYES: Pupils equal round and reactive. Extraocular motions intact. No scleral icterus. No injection or drainage. ENT: Nose without bleeding, purulent drainage or septal hematoma. Throat without erythema, tonsillar hypertrophy or exudate. Uvula midline. Airway patent. NECK: Trachea midline. No JVD or lymphadenopathy. Supple, nontender, no meningeal signs. CARDIOVASCULAR: Regular rate and rhythm without murmurs, gallops, or rubs. RESPIRATORY: Clear to auscultation. Breath sounds equal bilaterally. No wheezes , rales, or rhonchi. GASTROINTESTINAL: Abdomen soft, non-tender, nondistended. No hepato-splenomegaly , or palpable masses. No guarding. GENITOURINARY: No CVA tenderness, bladder not distended MUSCULOSKELETAL: Extremities without clubbing, cyanosis, or edema. No joint tenderness, effusion, or edema noted. No calf tenderness. Negative Homans sign bilaterally. NEUROLOGICAL: Awake and alert. Cranial nerves II through XII intact. Motor and sensory grossly within normal limits. Five out of 5 muscle strength in all muscle groups. Normal speech. Lab results reviewed: Yes Laboratory Tests Test 06/25/17 04:35 White Blood Count 12.6 Red Blood Count 3.52 Hemoglobin 11.4 Hematocrit 32.1 Mean Corpuscular Volume 91.2 Mean Corpuscular Hemoglobin 32.4 Mean Corpuscular Hemoglobin Concent 35.6 Red Cell Distribution Width 15.0 Platelet Count 162 Mean Platelet Volume 7.4 Neutrophils (%) (Auto) 83.0 Lymphocytes (%) (Auto) 6.7 Monocytes (%) (Auto) 10.0 Eosinophils (%) (Auto) 0.1 Basophils (%) (Auto) 0.2 Neutrophils # (Auto) 10.4 Lymphocytes # (Auto) 0.8 Monocytes # (Auto) 1.3 Eosinophils # (Auto) 0.0 Basophils # (Auto) 0.0 CBC Comment DIFF FINAL Differential Comment Blood Urea Nitrogen 24 Creatinine 1.35 Random Glucose 111 Calcium Level 8.3 Sodium Level 136 Potassium Level 3.5 Chloride Level 103 Carbon Dioxide Level 24.2 Anion Gap 9 Estimat Glomerular Filtration Rate 52 Lipase 350 Date/Time Source Procedure Growth Status 06/24/17 12:10 Blood Peripheral Aerobic Blood Culture - Preliminary NO GROWTH IN 1 DAY Resulted 06/24/17 12:10 Blood Peripheral Anaerobic Blood Culture - Preliminary NO GROWTH IN 1 DAY Resulted 06/24/17 10:15 Urine Random Urine Urine Culture Pending Received Result Diagram: 06/25/17 0435 06/25/17 0435 Personally reviewed images: Yes Imaging Last Impressions Chest X-Ray 06/24/17 1014 Signed Impressions: Service Date/Time: Saturday, June 24, 2017 10:42 - CONCLUSION: Compensated cardiomegaly otherwise negative . Ayaz Salter MD FACR Abdomen/Pelvis CT 06/24/17 1009 Signed Impressions: Service Date/Time: Saturday, June 24, 2017 11:55 - CONCLUSION: Obstructing 1 cm stone left UVJ with moderate perinephric stranding. 1 cm stone remaining upper pole Bilateral renal cysts Ayaz Salter MD FACR Assessment and Plan Assessment and Plan Urologic impression: 1. Obstructing left proximal ureteral calculus measuring 1 cm 2. Left upper pole renal calculus also measuring approximately 1 cm Plan: 1. Keep patient n.p.o. after midnight 2. Proceed with cystoscopy, left retrograde pyelogram and left ureteral stent placement tomorrow morning by my associate Dr. Reina 3. Will eventually require outpatient shockwave lithotripsy Problem Qualifiers (1) Urinary tract infection: Qualified Codes: N30.01 - Acute cystitis with hematuria (2) Sepsis: Qualified Codes: A41.9 - Sepsis, unspecified organism Juan Infante MD Jun 25, 2017 15:16
[2017-06-25] MEDS: PIPERACIL-TAZO 3.375 GM PREMIX 50 ML IV SCH ×2 (17:02→21:58)
[2017-06-25] MEDS ORDERED: SODIUM CHLORID 0.9% 500 ML INJ 500 ML IV ONE (22:30)
[2017-06-26] VITALS (10 sets, daily range): BP systolic 95–117; BP diastolic 54–79; PULSE 81–110; RESP 18–20; TEMP 98–100; O2SAT 94–97
[2017-06-26] MEDS: PIPERACIL-TAZO 3.375 GM PREMIX 50 ML IV SCH ×4 (04:00→21:31)
[2017-06-26] MEDS ORDERED: CHLORHEXIDINE GLUCONATE 2 % 1 PACK (2 CLOTHS) TOPICAL PRN (05:45)
[2017-06-26] MEDS ORDERED: POVIDONE IODINE 5% (ANTISEPSIS KIT) 4 APPLICATIONS EACH NARE PRN (05:45)
[2017-06-26] MEDS ORDERED: LACTATED RINGER'S 1000 ML IV PRN (05:45)
[2017-06-26] MEDS ORDERED: SODIUM CHLORID 0.9% 500 ML IV PRN (05:45)
[2017-06-26] MEDS ORDERED: METOPROLOL TARTRATE 25 MG TAB PO PRN (05:45)
[2017-06-26 06:02] LABS: AUTOMATED NEUTROPHIL # 7.3 TH/MM3 (1.8-7.7); BASOPHIL % 0.2 % (0.0-2.0); EOSINOPHIL % 0.4 % (0.0-4.0); HEMATOCRIT 31.2 % (39.0-51.0); HEMOGLOBIN 11.3 GM/DL (13.0-17.0); LYMPH % 9.9 % (9.0-44.0); LYMPHOCYTE # 0.9 TH/MM3 (1.0-4.8); MEAN CELL VOLUME 91.2 FL (80.0-100.0); MEAN PLATELET VOLUME 7.4 FL (7.0-11.0); NEUT % 78.5 % (16.0-70.0); PLATELET COUNT 158 TH/MM3 (150-450); RED BLOOD COUNT 3.42 MIL/MM3 (4.50-5.90); WHITE BLOOD COUNT 9.4 TH/MM3 (4.0-11.0)
[2017-06-26 06:03] LABS: MEAN CORPUSCULAR HGB CONC 36.2 % (32.0-36.0)
[2017-06-26 06:18] LABS: BICARBONATE 23.1 MEQ/L (21.0-32.0); CALCIUM 7.9 MG/DL (8.5-10.1); CREATININE 1.22 MG/DL (0.60-1.30); MAGNESIUM 2.3 MG/DL (1.5-2.5)
[2017-06-26] MEDS: LOSARTAN 25 MG TAB PO SCH (08:21)
[2017-06-26] MEDS: DOCUSATE SODIUM 50 MG/SENNA 8.6 MG TAB PO SCH ×2 (08:22→21:00)
--- NOTE | 2017-06-26 09:03 | HHI.PR ---
Subjective Remarks Follow-up sepsis and obstructive uropathy. Improving abdominal pain. Discussed with h nursing Objective Vitals Vital Signs Date Time Temp Pulse Resp B/P (MAP) Pulse Ox O2 Delivery O2 Flow Rate FiO2 06/26/17 04:00 98.0 81 20 96/58 (71) 96 06/26/17 00:00 98.2 06/26/17 00:00 84 20 102/64 (77) 94 06/25/17 22:10 98.5 06/25/17 20:02 101.0 95 22 82/42 (55) 94 06/25/17 16:29 99.9 79 16 108/72 (84) 98 06/25/17 16:00 78 06/25/17 16:00 98.8 77 18 131/62 (85) 92 06/25/17 12:08 98.7 80 18 135/58 (83) 98 06/25/17 12:00 82 06/25/17 10:58 99/57 (71) I/O 06/25/17 06/25/17 06/25/17 06/26/17 06/26/17 06/26/17 07:00 15:00 23:00 07:00 15:00 23:00 Intake Total 882 ml 250 ml Output Total 850 ml 350 ml 1000 ml Balance 32 ml 250 ml -350 ml -1000 ml IV Total 882 ml 250 ml Output Urine Total 850 ml 350 ml 1000 ml # Voids 1 Result Diagram: 06/26/17 0500 06/26/17 0550 Imaging Last Impressions Chest X-Ray 06/24/17 1014 Signed Impressions: Service Date/Time: Saturday, June 24, 2017 10:42 - CONCLUSION: Compensated cardiomegaly otherwise negative . Ayaz Salter MD FACR Abdomen/Pelvis CT 06/24/17 1009 Signed Impressions: Service Date/Time: Saturday, June 24, 2017 11:55 - CONCLUSION: Obstructing 1 cm stone left UVJ with moderate perinephric stranding. 1 cm stone remaining upper pole Bilateral renal cysts Ayaz Salter MD FACR Objective Remarks GENERAL: Obese elderly male in no acute distress. He looks dry HEENT: Normocephalic, atraumatic. Pupils equal, round and reactive. Extraocular movements intact. No scleral icterus. No injection or drainage. Oropharynx is clear. Dry oral mucosa. CARDIOVASCULAR: Regular rate and rhythm without murmurs, gallops, or rubs. RESPIRATORY: Clear to auscultation. No wheezes, rales, or rhonchi. Breathing is non-labored. GASTROINTESTINAL: Abdomen soft, non-tender, nondistended. No CVA tenderness. EXTREMITIES: No lower extremity edema. No calf tenderness. PSYCH: Alert and oriented x 3. Procedures none A/P Problem List: (1) Hypertension ICD Code: I10 - Essential (primary) hypertension (2) Urinary tract infection ICD Code: N39.0 - Urinary tract infection, site not specified Status: Acute (3) Sepsis ICD Code: A41.9 - Sepsis, unspecified organism Status: Acute (4) Urinary tract obstruction by kidney stone ICD Code: N20.0 - Calculus of kidney; N13.8 - Other obstructive and reflux uropathy Status: Acute Assessment and Plan 1. Sepsis secondary to urinary tract infection: Due to obstructing stone. Continue IV Levaquin. Urine culture pending and blood cultures 1 out of 4 with Escherichia coli. Consulted infectious disease, switched to IV Zosyn 2. Nephrolithiasis with obstruction: Patient presented with hematuria. Imaging shows obstructing stone. Urology for stenting. Continue IV hydration 3. Hypertension: Continue losartan. 4. Azotemia: Secondary to urinary tract obstruction and dehydration. Ct IV fluids. Monitor labs. 5. Elevated lipase. Improved denies epigastric pain and tenderness 6. NIA. Continue C Pap DVT prophylaxis: SCDs, YUDI hose. No pharmacological agents 2/2 hematuria 1803H EKG with A Flutter. Denies chest pain, shortness of breath and palpitations. procedure currently on hold. Cardiology consultation and obtain TSH and echocardiogram. BB or CCB if needed Problem Qualifiers (1) Urinary tract infection: Qualified Codes: N30.01 - Acute cystitis with hematuria (2) Sepsis: Qualified Codes: A41.9 - Sepsis, unspecified organism Nathanael Haas MD Jun 26, 2017 09:02
[2017-06-26 09:04] LABS: BANDS 19 % (0-6); LYMPHOCYTES 8 % (9-44); MONOCYTES 6 % (0-8); NEUTROPHIL # MANUAL DIFF 8.1 TH/MM3 (1.8-7.7); POLYS (SEG NEUTROPHILS) 67 % (16-70)
--- NOTE | 2017-06-26 10:51 | EKG ---
Date Performed: 06/26/2017 Time Performed: 09:50:02 PTAGE: 72 years EKG: ATRIAL FLUTTER/TACHYCARDIA MODERATE INTRAVENTRICULAR CONDUCTION DELAY ABNORMAL RHYTHM ECG NO PREVIOUS TRACING DOCTOR: Zane Michel Interpretating Date/Time 06/26/2017 10:50:29
[2017-06-26] MEDS ORDERED: POTASSIUM CHLORIDE 20 MEQ CONTROLLED RELEASE TAB PO ONE (11:00)
[2017-06-26] MEDS: NS + KCL 20 MEQ INJ 1,000 ML IV SCH ×2 (12:14→16:31)
--- NOTE | 2017-06-26 12:47 | HHI.IDPN ---
Subjective Subjective Remarks Patient is a 72-year-old male, admitted to the hospital for further evaluation of persistent hematuria, and intermittent abdominal discomfort. He gives a history of previous prostate cancer and he had undergone prostatectomy. He has no prior problem with hematuria. He lives in [place], and his down here in [place] and he stays here for at least 2 months at a time about once a year. About 3 weeks ago, he started developing hematuria. He denies any problem with dysuria. About 56 days ago he started experiencing some abdominal discomfort in the suprapubic region. Also experience some chills and sweats, although he did not take his temperature. He had several episodes of vomiting several days prior to admission. He has chronic back pain, and has not really experience any worsening of his back pain. He has no prior history of hematuria, or history of kidney stone. Patient presented to the hospital, and since admission he has had fevers up to 103. Urinalysis did show presence of RBC and WBC. Urine culture is pending. 1 out of 2 blood culture has Escherichia coli. CT of the abdomen and pelvis showing an obstructing stone in the left UPJ. There was no mention of any hydronephrosis. Patient currently is still having some discomfort in the suprapubic region. He has not had any vomiting. Temperatures are down. His initial WBC was elevated , and it's improving. His creatinine is elevated. Infectious disease consultation has been requested to evaluate the patient with bacteremia Notes reviewed Temps up last night OR plans noted, cancelled due to atrial fib BC and UC with E coli WBC better Creatinine better Antibiotics Current Medications Zosyn Levaquin Medications (Trade) Dose Ordered Sig/Jenny Route Start Time Stop Time Status Last Admin (NS Flush) 2 ml UNSCH PRN IV FLUSH 06/24/17 10:15 (Tylenol) 650 mg Q4H PRN PO 06/24/17 13:30 06/25/17 20:44 (Zofran Inj) 4 mg Q6H PRN IVP 06/24/17 13:30 06/24/17 16:21 (Narcan Inj) 0.4 mg UNSCH PRN IV PUSH 06/24/17 13:30 (Oksana-Colace) 1 tab BID PO 06/24/17 21:00 06/25/17 20:43 (Milk Of Magnesia Liq) 30 ml Q12H PRN PO 06/24/17 13:30 (Senokot) 17.2 mg Q12H PRN PO 06/24/17 13:30 (Dulcolax Supp) 10 mg DAILY PRN RECTAL 06/24/17 13:30 (Lactulose Liq) 30 ml DAILY PRN PO 06/24/17 13:30 (Cozaar) 25 mg DAILY PO 06/25/17 09:00 06/25/17 08:26 Potassium Chloride/Sodium Chloride 1,000 ml @ 100 mls/hr Q10H IV 06/24/17 14:30 06/25/17 21:59 Levofloxacin/ Dextrose 150 ml @ 100 mls/hr Q24H IV 06/24/17 16:00 06/25/17 15:13 Piperacillin Sod/ Tazobactam Sod 50 ml @ 100 mls/hr Q6H IV 06/25/17 16:00 06/26/17 08:23 Lactated Ringer's 1,000 ml @ 30 mls/hr Q24H PRN IV 06/26/17 05:45 06/29/17 05:44 Sodium Chloride 500 ml @ 30 mls/hr [id number] PRN IV 06/26/17 05:45 06/29/17 05:44 (Lopressor) 25 mg FORK ASSEMBLER PRN PO 06/26/17 05:45 06/29/17 05:44 (Betadine 5% Antisepsis Kit) 1 applic FORK ASSEMBLER PRN EACH NARE 06/26/17 05:45 06/29/17 05:44 (Chlorhexidine 2% Cloth) 3 pack FORK ASSEMBLER PRN TOPICAL 06/26/17 05:45 06/29/17 05:44 Lines PIV Past Medical History Hypertension History of prostate cancer Past Surgical History Prostatectomy Tonsillectomy Allergies: Coded Allergies: No Known Allergies (Unverified , 06/24/17) Objective . Vital Signs Date Time Temp Pulse Resp B/P (MAP) Pulse Ox O2 Delivery O2 Flow Rate FiO2 06/26/17 12:02 98.9 83 18 107/66 (80) 97 06/26/17 10:28 Nasal Cannula 2.00 06/26/17 08:02 98.8 83 18 97/61 (73) 97 06/26/17 08:00 82 06/26/17 04:00 98.0 81 20 96/58 (71) 96 06/26/17 00:00 98.2 06/26/17 00:00 84 20 102/64 (77) 94 06/25/17 22:10 98.5 06/25/17 20:02 101.0 95 22 82/42 (55) 94 06/25/17 16:29 99.9 79 16 108/72 (84) 98 06/25/17 16:00 78 06/25/17 16:00 98.8 77 18 131/62 (85) 92 . Laboratory Tests Test 06/25/17 04:35 06/26/17 05:00 White Blood Count 12.6 TH/MM3 9.4 TH/MM3 Red Blood Count 3.52 MIL/MM3 3.42 MIL/MM3 Hemoglobin 11.4 GM/DL 11.3 GM/DL Hematocrit 32.1 % 31.2 % Mean Corpuscular Volume 91.2 FL 91.2 FL Mean Corpuscular Hemoglobin 32.4 PG 33.0 PG Mean Corpuscular Hemoglobin Concent 35.6 % 36.2 % Red Cell Distribution Width 15.0 % 15.0 % Platelet Count 162 TH/MM3 158 TH/MM3 Mean Platelet Volume 7.4 FL 7.4 FL Neutrophils (%) (Auto) 83.0 % 78.5 % Lymphocytes (%) (Auto) 6.7 % 9.9 % Monocytes (%) (Auto) 10.0 % 11.0 % Eosinophils (%) (Auto) 0.1 % 0.4 % Basophils (%) (Auto) 0.2 % 0.2 % Neutrophils # (Auto) 10.4 TH/MM3 7.3 TH/MM3 Lymphocytes # (Auto) 0.8 TH/MM3 0.9 TH/MM3 Monocytes # (Auto) 1.3 TH/MM3 1.0 TH/MM3 Eosinophils # (Auto) 0.0 TH/MM3 0.0 TH/MM3 Basophils # (Auto) 0.0 TH/MM3 0.0 TH/MM3 CBC Comment DIFF FINAL AUTO DIFF Differential Comment FINAL DIFF MANUAL Differential Total Cells Counted 100 Neutrophils % (Manual) 67 % Band Neutrophils % 19 % Lymphocytes % 8 % Monocytes % 6 % Neutrophils # (Manual) 8.1 TH/MM3 Platelet Estimate NORMAL Platelet Morphology Comment NORMAL Laboratory Tests Test 06/25/17 04:35 06/26/17 05:50 Blood Urea Nitrogen 24 MG/DL 24 MG/DL Creatinine 1.35 MG/DL 1.22 MG/DL Random Glucose 111 MG/DL 96 MG/DL Calcium Level 8.3 MG/DL 7.9 MG/DL Sodium Level 136 MEQ/L 136 MEQ/L Potassium Level 3.5 MEQ/L 3.8 MEQ/L Chloride Level 103 MEQ/L 106 MEQ/L Carbon Dioxide Level 24.2 MEQ/L 23.1 MEQ/L Anion Gap 9 MEQ/L 7 MEQ/L Estimat Glomerular Filtration Rate 52 ML/MIN 58 ML/MIN Lipase 350 U/L Magnesium Level 2.3 MG/DL Microbiology Date/Time Source Procedure Growth Status 06/24/17 12:10 Blood Peripheral Aerobic Blood Culture - Preliminary NO GROWTH IN 2 DAYS Resulted 06/24/17 12:10 Blood Peripheral Anaerobic Blood Culture - Preliminary NO GROWTH IN 2 DAYS Resulted 06/24/17 12:00 Blood Peripheral Aerobic Blood Culture - Preliminary Escherichia Coli Resulted 06/24/17 12:00 Blood Peripheral Anaerobic Blood Culture - Preliminary NO GROWTH IN 2 DAYS Resulted 06/24/17 10:15 Urine Random Urine Urine Culture - Final Escherichia Coli Complete Imaging Last Impressions Chest X-Ray 06/24/17 1014 Signed Impressions: Service Date/Time: Saturday, June 24, 2017 10:42 - CONCLUSION: Compensated cardiomegaly otherwise negative . Ayaz Salter MD FACR Abdomen/Pelvis CT 06/24/17 1009 Signed Impressions: Service Date/Time: Saturday, June 24, 2017 11:55 - CONCLUSION: Obstructing 1 cm stone left UVJ with moderate perinephric stranding. 1 cm stone remaining upper pole Bilateral renal cysts Ayaz Salter MD FACR Physical Exam GENERAL: Patient is an obese, well-developed male, awake and alert, not in respiratory distress. SKIN: Cool and dry. No generalized rash HEAD: Atraumatic. Normocephalic. No temporal wasting, or tenderness. EYES: [place] conjunctiva. No petechia or hemorrhage. Pupils equal, round and reactive to light. Extraocular movements full and intact. No scleral icterus. EARS, NOSE AND THROAT: Nose without bleeding or purulent nasal discharge. No sinus tenderness. Mucous membranes pink and moist. No oral lesions noted. NECK: Trachea midline. Supple and not tender, no meningeal signs CARDIOVASCULAR: Regular rate and rhythm. No murmurs, rubs or gallops heard RESPIRATORY: Clear to auscultation. Breath sounds equal bilaterally. No rales , wheezing or rhonchi. Decreased breath sounds at bases ABDOMEN: Soft, obese, mildly tender on R side, nondistended. Bowel sounds present and normoactive. No guarding. No rebound. No suprapubic tenderness. No organomegaly. EXTREMITIES: No clubbing, cyanosis, or edema. No joint effusion, has good ROM. No calf tenderness. Well perfused and warm. NEUROLOGICAL: Awake and alert. Cranial nerves grossly intact. Motor grossly within normal limits. PSYCHIATRIC: Normal affect, calm and cooperative. LINE: No evidence of infection Assessment & Plan Remarks IMPRESSION E coli sepsis, likely source - UA with blood and WBC, has obstructing stone on L, no hydro, ?early Hematuria, due to stone Hx prostate CA, S/P prostatectomy Renal insufficiency RECOMMENDATION Continue Zosyn Stop Levaquin Follow C/S and adjust Abx OR plans per urology once cleared by urology Monitor progress I will be off Jun 27- Other ID covering in my absence Rola Ellison MD Jun 26, 2017 12:47
--- NOTE | 2017-06-26 13:37 | HHI.PR ---
Subjective Patient symptoms today Pt scheduled to go to OR today; however; he was noted to be in A-fib. No chest pain or SOB noted. Objective Vital Signs Vital Signs Date Time Temp Pulse Resp B/P (MAP) Pulse Ox O2 Delivery O2 Flow Rate FiO2 06/26/17 12:02 98.9 83 18 107/66 (80) 97 06/26/17 12:00 83 06/26/17 10:28 Nasal Cannula 2.00 06/26/17 08:02 98.8 83 18 97/61 (73) 97 06/26/17 08:00 82 06/26/17 04:00 98.0 81 20 96/58 (71) 96 06/26/17 00:00 98.2 06/26/17 00:00 84 20 102/64 (77) 94 06/25/17 22:10 98.5 06/25/17 20:02 101.0 95 22 82/42 (55) 94 06/25/17 16:29 99.9 79 16 108/72 (84) 98 06/25/17 16:00 78 06/25/17 16:00 98.8 77 18 131/62 (85) 92 Intake & Output 06/26/17 06/26/17 07:00 19:00 Output Total 1225 ml Balance -1225 ml Output Urine Total 1225 ml # Voids 1 Result Diagram: 06/26/17 0500 06/26/17 0550 Objective Remarks Abd:soft,nt,nd Neg CVAT Medications and IVs Current Medications Medications (Trade) Dose Ordered Sig/Jenny Route Start Time Stop Time Status Last Admin (NS Flush) 2 ml UNSCH PRN IV FLUSH 06/24/17 10:15 (Tylenol) 650 mg Q4H PRN PO 06/24/17 13:30 06/25/17 20:44 (Zofran Inj) 4 mg Q6H PRN IVP 06/24/17 13:30 06/24/17 16:21 (Narcan Inj) 0.4 mg UNSCH PRN IV PUSH 06/24/17 13:30 (Oksana-Colace) 1 tab BID PO 06/24/17 21:00 06/25/17 20:43 (Milk Of Magnesia Liq) 30 ml Q12H PRN PO 06/24/17 13:30 (Senokot) 17.2 mg Q12H PRN PO 06/24/17 13:30 (Dulcolax Supp) 10 mg DAILY PRN RECTAL 06/24/17 13:30 (Lactulose Liq) 30 ml DAILY PRN PO 06/24/17 13:30 (Cozaar) 25 mg DAILY PO 06/25/17 09:00 06/25/17 08:26 Potassium Chloride/Sodium Chloride 1,000 ml @ 100 mls/hr Q10H IV 06/24/17 14:30 06/25/17 21:59 Piperacillin Sod/ Tazobactam Sod 50 ml @ 100 mls/hr Q6H IV 06/25/17 16:00 06/26/17 08:23 Lactated Ringer's 1,000 ml @ 30 mls/hr Q24H PRN IV 06/26/17 05:45 06/29/17 05:44 Sodium Chloride 500 ml @ 30 mls/hr [id number] PRN IV 06/26/17 05:45 06/29/17 05:44 (Lopressor) 25 mg PRE PLANNING ADVISOR PRN PO 06/26/17 05:45 06/29/17 05:44 (Betadine 5% Antisepsis Kit) 1 applic PRE PLANNING ADVISOR PRN EACH NARE 06/26/17 05:45 06/29/17 05:44 (Chlorhexidine 2% Cloth) 3 pack PRE PLANNING ADVISOR PRN TOPICAL 06/26/17 05:45 06/29/17 05:44 Assessment and Plan Assessment and Plan Urologic impression: 1. Obstructing left proximal ureteral calculus measuring 1 cm 2. Left upper pole renal calculus also measuring approximately 1 cm Plan: 1. Keep patient n.p.o. after midnight 2. Proceed with cystoscopy, left retrograde pyelogram and left ureteral stent placement tomorrow morning by my associate Dr. Reina 3. Will eventually require outpatient shockwave lithotripsy 06/26/17 72 y.o male with left ureteral stone with E.coli sepsis and new onset A-fib Cardiology evaluation Will postpone surgery until medically stable to proceed with stent insertion Donnie Reina DO Jun 26, 2017 13:37
[2017-06-26 23:06] LABS: FREE T3 0.82 PG/ML (2.18-3.98); FREE T4 0.65 NG/DL (0.76-1.46)
[2017-06-27] VITALS (9 sets, daily range): BP systolic 98–114; BP diastolic 54–84; PULSE 78–109; RESP 16–18; TEMP 97.8–98.6; O2SAT 94–96
[2017-06-27] MEDS: PIPERACIL-TAZO 3.375 GM PREMIX 50 ML IV SCH ×2 (04:27→08:57)
[2017-06-27] MEDS: NS + KCL 20 MEQ INJ 1,000 ML IV SCH ×2 (04:30→18:33)
[2017-06-27 07:22] LABS: BICARBONATE 23.9 MEQ/L (21.0-32.0); CALCIUM 8.3 MG/DL (8.5-10.1); CREATININE 1.01 MG/DL (0.60-1.30); MAGNESIUM 2.2 MG/DL (1.5-2.5)
[2017-06-27 07:54] LABS: AUTOMATED NEUTROPHIL # 5.8 TH/MM3 (1.8-7.7); BASOPHIL # 0.1 TH/MM3 (0-0.2); BASOPHIL % 0.7 % (0.0-2.0); EOSINOPHIL # 0.1 TH/MM3 (0-0.4); EOSINOPHIL % 0.9 % (0.0-4.0); HEMATOCRIT 40.3 % (39.0-51.0); HEMOGLOBIN 14.2 GM/DL (13.0-17.0); LYMPH % 13.7 % (9.0-44.0); MEAN CELL VOLUME 90.9 FL (80.0-100.0); MEAN CORPUSCULAR HEMOGLOBIN 32.1 PG (27.0-34.0); MEAN CORPUSCULAR HGB CONC 35.3 % (32.0-36.0); MEAN PLATELET VOLUME 8.1 FL (7.0-11.0); MONO % 8.3 % (0.0-8.0); MONOCYTE # 0.6 TH/MM3 (0-0.9); NEUT % 76.4 % (16.0-70.0); PLATELET COUNT 163 TH/MM3 (150-450); RED BLOOD COUNT 4.44 MIL/MM3 (4.50-5.90); RED CELL DISTRIBUTION WIDTH 15.1 % (11.6-17.2); WHITE BLOOD COUNT 7.6 TH/MM3 (4.0-11.0)
--- NOTE | 2017-06-27 08:20 | MB ---
cc: JUSTICE BARRETT DO DATE OF CONSULTATION June 26, 2017 REASON FOR CONSULTATION New-onset atrial fibrillation. HISTORY OF PRESENT ILLNESS Олег Min is a pleasant 72-year-old male who is visiting from [place]. Apparently he comes here for about two months and spends 9-10 months in [place]. He started noticing blood in his urine which started about two weeks ago. He started getting intermittent abdominal discomfort with some nausea and vomiting. He has never had any episodes like this before. On arrival he was found to have a large kidney stone and was apparently going for possible stenting today to the OR. Once it was found out that he had new onset atrial fibrillation, his procedure was cancelled and I was consulted for further recommendations. From a cardiovascular standpoint the patient states that works out three to five times per week. His workout lasts about 1-1/2 hours. During this he uses the elliptical, bike and stepper without chest pain. In seeing him, he is currently hemodynamically stable without chest pain or shortness of breath. PAST MEDICAL HISTORY 1. Hypertension 2. History of prostate cancer. PAST SURGICAL HISTORY 1. Prostatectomy. 2. Tonsillectomy. ALLERGIES No known drug allergies. MEDICATIONS 1. Losartan 25 mg daily. 2. Meloxicam 7.5 mg daily 3. Gabapentin 1500 mg every night. FAMILY HISTORY Denies premature coronary artery disease or sudden cardiac within the family. SOCIAL HISTORY Denies tobacco, alcohol or illicit drug abuse. REVIEW OF SYSTEMS 14-systems were reviewed including osteopathic pertinent positives and negatives above, otherwise negative. PHYSICAL EXAMINATION VITAL SIGNS: Temperature 98.9, heart rate 83, blood pressure 107/66, respirations 18, pulse ox 97% on 2 liters. IN GENERAL: The patient appears well, in no acute distress, alert, awake and oriented x3. Extraocular muscles intact. Mucous membranes moist. NECK: Supple. No JVD at 45 degrees. No carotid bruits heard bilaterally. Carotid upstroke is brisk in nature. HEART: Irregularly irregular. Positive first and second heart sounds with no noted murmurs, gallops or rubs. LUNGS: Clear to auscultation bilaterally. No wheezes, rales or rhonchi. ABDOMEN: Soft, nontender, nondistended. No organomegaly noted. EXTREMITIES: No clubbing, cyanosis or edema. Femoral and distal pulses intact bilaterally. NEUROLOGICALLY: No focal deficits. SKIN: Warm, dry and intact. OSTEOPATHIC: Mild lordosis. No kyphoscoliosis or paraspinal tender points. LABORATORY FINDINGS Hemoglobin 11.3, hematocrit 31.2, platelets 158. Potassium 3.8, BUN 24, creatinine 1.22. ELECTROCARDIOGRAM (June 26, 2017 at 09:50) Atrial flutter with controlled ventricular response, nonspecific intraventricular conduction delay. IMPRESSION 1. New onset atrial flutter with controlled ventricular response. 2. Kidney stone. 3. UTI. 4. Sepsis. 5. History of hypertension. RECOMMENDATIONS 1. Mr. Min was found to have new onset atrial fibrillation and denies a previous history of this. He is currently hemodynamically stable with a controlled ventricular response. 2. In seeing him from a preoperative cardiovascular risk assessment, he is not suffering from acute coronary syndrome, congestive heart failure or electrical instability. He goes to the gym and shows that he can do greater than four minutes of work without symptoms and so he may proceed as a moderate risk. 3. As far as his atrial fibrillation goes, he has a CHADS-VASc score of 2. We discussed anticoagulation and he feels that this will be difficult as he has a ureteral stent placed with his hematuria which I agree with. He understands that he will be at some risk over the next few weeks but will have this reevaluated by his primary care physician at home and possibly seeing a deposit clerk at that time. 4. At this time no further cardiovascular workup is necessary and he may proceed to surgery as a moderate risk. Thank you for allowing me to see Олег Min. If there are any questions, please do not hesitate to call. Justice Barrett DO VGP/SSB /11:02 PM /7:57 AM
[2017-06-27] MEDS: DOCUSATE SODIUM 50 MG/SENNA 8.6 MG TAB PO SCH ×2 (08:54→20:48)
[2017-06-27] MEDS ORDERED: PROPOFOL 200 MG/20 ML AMP IV ONE (12:00)
[2017-06-27] MEDS ORDERED: ROCURONIUM INJ 50 MG/5 ML SYRINGE IV PUSH ONE (12:00)
[2017-06-27] MEDS ORDERED: LACTATED RINGER'S 1000 ML INJ 1,000 ML IV ONE (12:00)
[2017-06-27] MEDS ORDERED: PHENYLEPH/NS 1000 MCG/10 ML SYR IV ONE (12:00)
[2017-06-27] MEDS ORDERED: NEOSTIGMINE 5 MG/5 ML SYRINGE IV PUSH ONE (12:00)
[2017-06-27] MEDS ORDERED: LIDOCAINE HCL 1% PF 5 ML SYRINGE OTHER ONE (12:00)
[2017-06-27] MEDS ORDERED: GLYCOPYRROLATE 1 MG/5 ML SYRINGE IV PUSH ONE (12:00)
[2017-06-27] MEDS ORDERED: ESMOLOL HCL 100 MG/10 ML VIAL IV ONE (12:00)
--- NOTE | 2017-06-27 12:42 | HHI.PR ---
Subjective Remarks Follow-up atrial fibrillation. Patient denies chest pain, palpitations and shortness of breath. Improving lower abdominal pain. He feels good. He does not want to be on anticoagulation until he talks to his nutrition intern back in [place]. He is aware of the risk of stroke. Discussed with nursing Objective Vitals Vital Signs Date Time Temp Pulse Resp B/P (MAP) Pulse Ox O2 Delivery O2 Flow Rate FiO2 06/27/17 09:00 Room Air 06/27/17 08:02 98.0 83 18 103/64 (77) 94 06/27/17 08:00 81 06/27/17 07:02 97.8 100 16 98/54 (69) 96 06/27/17 04:00 78 06/27/17 00:29 98.0 100 16 98/56 (70) 96 06/27/17 00:00 83 06/26/17 20:15 96 Room Air 06/26/17 20:15 90 06/26/17 19:16 100.0 82 18 95/54 (68) 94 06/26/17 16:20 99.2 110 18 117/79 (92) 97 06/26/17 16:00 99 I/O 06/26/17 06/26/17 06/26/17 06/27/17 06/27/17 06/27/17 07:00 15:00 23:00 07:00 15:00 23:00 Intake Total 50 ml 1000 ml 480 ml Output Total 1000 ml 300 ml Balance -1000 ml -250 ml 1000 ml 480 ml Intake Oral 480 ml IV Total 50 ml 1000 ml Output Urine Total 1000 ml 300 ml # Voids 3 2 Result Diagram: 06/27/17 0428 06/27/17 0428 Imaging Last Impressions Chest X-Ray 06/24/17 1014 Signed Impressions: Service Date/Time: Saturday, June 24, 2017 10:42 - CONCLUSION: Compensated cardiomegaly otherwise negative . Ayaz Salter MD FACR Abdomen/Pelvis CT 06/24/17 1009 Signed Impressions: Service Date/Time: Saturday, June 24, 2017 11:55 - CONCLUSION: Obstructing 1 cm stone left UVJ with moderate perinephric stranding. 1 cm stone remaining upper pole Bilateral renal cysts Ayaz Salter MD FACR Objective Remarks GENERAL: Obese elderly male in no acute distress. HEENT: Normocephalic, atraumatic. Pupils equal, round and reactive. Extraocular movements intact. No scleral icterus. No injection or drainage. Oropharynx is clear. CARDIOVASCULAR: Irregularly irregular without murmurs, gallops, or rubs. RESPIRATORY: Clear to auscultation. No wheezes, rales, or rhonchi. Breathing is non-labored. GASTROINTESTINAL: Abdomen soft, non-tender, nondistended. No CVA tenderness. EXTREMITIES: No lower extremity edema. No calf tenderness. PSYCH: Alert and oriented x 3. Procedures none A/P Problem List: (1) Hypertension ICD Code: I10 - Essential (primary) hypertension (2) Urinary tract infection ICD Code: N39.0 - Urinary tract infection, site not specified Status: Acute (3) Sepsis ICD Code: A41.9 - Sepsis, unspecified organism Status: Acute (4) Urinary tract obstruction by kidney stone ICD Code: N20.0 - Calculus of kidney; N13.8 - Other obstructive and reflux uropathy Status: Acute Assessment and Plan 1. Sepsis secondary to Escherichia coli urinary tract infection: Due to obstructing stone. Discussed with ID, switch to IV Rocephin and follow-up repeat BMP. 2. Nephrolithiasis with obstruction: Patient presented with hematuria. Imaging shows obstructing stone. Urology for stenting today. Continue IV hydration 3. Hypertension: Has been having low BP readings discontinue losartan for now and continue IV hydration 4. Azotemia: Secondary to urinary tract obstruction and dehydration. Improving. Ct IV fluids. Monitor labs. 5. Elevated lipase. Improved denies epigastric pain and tenderness 6. NIA. Continue C Pap 7. New onset atrial fibrillation. CHAds score of 2. Rate controlled at this time. Patient refuses to be on anticoagulation and wants to discuss with his PCP/cardiology in [place]. Follow-up echocardiogram. TSH is low as well as free T3 and free T4 likely sick euthyroid. DVT prophylaxis: SCDs, YUDI hose. No pharmacological agents 2/2 hematuria Problem Qualifiers (1) Urinary tract infection: Qualified Codes: N30.01 - Acute cystitis with hematuria (2) Sepsis: Qualified Codes: A41.9 - Sepsis, unspecified organism Nathanael Haas MD Jun 27, 2017 12:42
--- NOTE | 2017-06-27 12:43 | HHI.DCPOC ---
Discharge Care Plan Diagnosis: (1) Sepsis Your Health Problems Are: Difficulty with ADL Exercise Tolerance Goals to Promote Your Health * To prevent worsening of your condition and complications * To maintain your health at the optimal level Directions to Meet Your Goals Take your medications as prescribed Follow your dietary instruction Follow activity as directed Keep your appointments as scheduled Take your immunizations and boosters as scheduled If your symptoms worsen call your PCP, if no PCP go to Urgent Care Center or Emergency Room Smoking is Dangerous to Your Health. Avoid second hand smoke Call the 24-hour hour crisis hotline for domestic abuse at Nathanael Haas MD Jun 27, 2017 12:43
--- NOTE | 2017-06-27 13:59 | PD.OP ---
Operative Report Date of Surgery: Jun 27, 2017 Preoperative Diagnosis: Left UPJ stone with history of Escherichia coli sepsis Postoperative Diagnosis: Same Procedure: Cystoscopy with left retrograde study left double-J stent insertion Anesthesia: Gen. LMA Surgeon: Donnie Reina Principal Quality Engineer(s): None Resident Surgeon: None Operation and Findings: 72 year-old male presents with findings of a 1 cm left UPJ stone causing obstruction and Escherichia coli sepsis. Decision was made to bring the patient to the operating room undergo cystoscopy with left double-J stent insertion. Risk and benefits were discussed preoperatively and the patient was willing to proceed. The patient was brought to the operating room identified by myself as Олег Mechelle. He was placed in dorsal lithotomy position, prepped and draped in the usual sterile fashion, received preprocedure antibiotics, and general LMA anesthesia was administered. 22 Turkish cystoscope was inserted in the bladder gilmore cystoscopy did not reveal any abnormalities. There did appear to be a TUR defect. The left ureteral orifice was identified. A general catheter was inserted in the left ureteral orifice. A filling defect was identified at approximately the mid ureter. A 0.35 sensor wire was then passed through the open-ended catheter with a good curl in the kidney. The open-ended catheter was then removed a 6 Turkish 24 cm stent was in place with a good curl in the kidney and then a good curl in the bladder. The bladder was evacuated and he was awoken and transferred to the recovery room in stable condition. In the future, he will need to be scheduled for left extracorporeal shockwave lithotripsy. Donnie Reina DO Jun 27, 2017 13:59
[2017-06-27] MEDS ORDERED: cefTRIAXone INJ 1,000 MG in SODIUM CHLORIDE 0.9% INJ 100 ML IV SCH (14:00)
[2017-06-27] MEDS ORDERED: DO NOT ADM ANY ANTICOAGULANT DRUGS PRN (14:17)
--- NOTE | 2017-06-27 14:31 | RADRPT ---
EXAM DATE/TIME: 06/27/2017 13:53 [facility] COMPARISON: No previous studies available for comparison. INDICATIONS : Left side stent placement MEDICAL HISTORY : Renal calculi. SURGICAL HISTORY : None. ENCOUNTER: Initial ACUITY: 1 day PAIN SCORE: Non-responsive. LOCATION: Left abdomen FINDINGS: Left internal ureteral stent is noted and appears to be adequate in position. CONCLUSION: Left internal ureteral stent appears to be adequate in position. Mike Machuca MD on June 27, 2017 at 14:27 Board Certified Radiologist. This report was verified electronically.
[2017-06-27] MEDS ORDERED: GABAPENTIN 300 MG CAP PO SCH (21:00)
[2017-06-28] VITALS: BP 98/54; PULSE 80; PULSE 91; RESP 20; TEMP 98.1; O2SAT 96
[2017-06-28 04:00] VITALS: BP 117/76; PULSE 107; PULSE 84; RESP 20; TEMP 99.1; O2SAT 92
[2017-06-28] MEDS: NS + KCL 20 MEQ INJ 1,000 ML IV SCH ×2 (06:04→15:21)
[2017-06-28 06:49] LABS: BICARBONATE 27.4 MEQ/L (21.0-32.0); CALCIUM 9.3 MG/DL (8.5-10.1); CREATININE 0.94 MG/DL (0.60-1.30); MAGNESIUM 2.1 MG/DL (1.5-2.5)
[2017-06-28 08:00] VITALS: BP 101/73; PULSE 84; PULSE 88; RESP 18; TEMP 97.9; O2SAT 94
[2017-06-28] MEDS: DOCUSATE SODIUM 50 MG/SENNA 8.6 MG TAB PO SCH (08:05)
--- NOTE | 2017-06-28 08:20 | HHI.PR ---
Subjective Patient symptoms today Pt seen and examined. Feels well. Voiding well. Objective Vital Signs Vital Signs Date Time Temp Pulse Resp B/P (MAP) Pulse Ox O2 Delivery O2 Flow Rate FiO2 06/28/17 04:00 99.1 107 20 117/76 (90) 92 06/28/17 04:00 84 06/28/17 00:00 98.1 91 20 98/54 (69) 96 06/28/17 00:00 80 06/27/17 20:15 96 Room Air 06/27/17 20:00 84 06/27/17 20:00 97.8 109 18 109/84 (92) 95 06/27/17 16:26 Room Air 06/27/17 16:16 98.6 78 18 114/58 (76) 96 06/27/17 16:00 82 06/27/17 14:35 83 14 96/66 (76) 95 Nasal Cannula 2 06/27/17 14:15 110 14 92/62 (72) 95 Nasal Cannula 2 06/27/17 14:11 98.2 77 14 89/54 (66) 94 Nasal Cannula 2 06/27/17 09:00 Room Air Intake & Output 06/28/17 06/28/17 07:00 19:00 Intake Total 1480 ml Output Total 1200 ml Balance 280 ml Intake Oral 480 ml IV Total 1000 ml Output Urine Total 1200 ml Result Diagram: 06/27/17 0428 06/28/17 0524 Objective Remarks Abd:soft,nt,nd Neg CVAT 06/28 Abd:soft,nt,nd Neg: CVAT Medications and IVs Current Medications Medications (Trade) Dose Ordered Sig/Jenny Route Start Time Stop Time Status Last Admin (NS Flush) 2 ml UNSCH PRN IV FLUSH 06/24/17 10:15 (Tylenol) 650 mg Q4H PRN PO 06/24/17 13:30 06/25/17 20:44 (Zofran Inj) 4 mg Q6H PRN IVP 06/24/17 13:30 06/24/17 16:21 (Narcan Inj) 0.4 mg UNSCH PRN IV PUSH 06/24/17 13:30 (Oksana-Colace) 1 tab BID PO 06/24/17 21:00 06/28/17 08:05 (Milk Of Magnesia Liq) 30 ml Q12H PRN PO 06/24/17 13:30 (Senokot) 17.2 mg Q12H PRN PO 06/24/17 13:30 (Dulcolax Supp) 10 mg DAILY PRN RECTAL 06/24/17 13:30 (Lactulose Liq) 30 ml DAILY PRN PO 06/24/17 13:30 Potassium Chloride/Sodium Chloride 1,000 ml @ 100 mls/hr Q10H IV 06/24/17 14:30 06/28/17 06:04 Lactated Ringer's 1,000 ml @ 30 mls/hr Q24H PRN IV 06/26/17 05:45 06/29/17 05:44 Sodium Chloride 500 ml @ 30 mls/hr [id number] PRN IV 06/26/17 05:45 06/29/17 05:44 (Lopressor) 25 mg CURRICULUM WRITER PRN PO 06/26/17 05:45 06/29/17 05:44 (Betadine 5% Antisepsis Kit) 1 applic CURRICULUM WRITER PRN EACH NARE 06/26/17 05:45 06/29/17 05:44 (Chlorhexidine 2% Cloth) 3 pack CURRICULUM WRITER PRN TOPICAL 06/26/17 05:45 06/29/17 05:44 (Neurontin) 1,500 mg HS PO 06/27/17 21:00 06/27/17 20:48 Ceftriaxone Sodium 1000 mg/ Sodium Chloride 100 ml @ 200 mls/hr Q24H IV 06/27/17 14:00 06/27/17 15:48 Miscellaneous Information ALL NURSING DEPARTME... UNSCH PRN .XX 06/27/17 14:17 06/28/17 14:16 Assessment and Plan Assessment and Plan Urologic impression: 1. Obstructing left proximal ureteral calculus measuring 1 cm 2. Left upper pole renal calculus also measuring approximately 1 cm Plan: 1. Keep patient n.p.o. after midnight 2. Proceed with cystoscopy, left retrograde pyelogram and left ureteral stent placement tomorrow morning by my associate Dr. Reina 3. Will eventually require outpatient shockwave lithotripsy 06/26/17 72 y.o male with left ureteral stone with E.coli sepsis and new onset A-fib Cardiology evaluation Will postpone surgery until medically stable to proceed with stent insertion 06/28 72 y.o male s/p cysto with left JJ stent insertion with proximal left ureteral stone Continue outpt abx Will need left ESWL as outpt Donnie Reina DO Jun 28, 2017 08:20
[2017-06-28] MEDS ORDERED: LEVA500T33 PO (10:03)
--- NOTE | 2017-06-28 10:04 | HHI.PR ---
Subjective Remarks Follow-up A. fib and sepsis. Patient feels good no symptoms. Still in A. fib refusing anticoagulation at this time. Discussed with nursing, stable for discharge pending midline and home healthcare visiting nurse to administer IV ertapenem Objective Vitals Vital Signs Date Time Temp Pulse Resp B/P (MAP) Pulse Ox O2 Delivery O2 Flow Rate FiO2 06/28/17 09:21 Room Air 06/28/17 08:00 88 06/28/17 08:00 97.9 84 18 101/73 (82) 94 06/28/17 04:00 99.1 107 20 117/76 (90) 92 06/28/17 04:00 84 06/28/17 00:00 98.1 91 20 98/54 (69) 96 06/28/17 00:00 80 06/27/17 20:15 96 Room Air 06/27/17 20:00 84 06/27/17 20:00 97.8 109 18 109/84 (92) 95 06/27/17 16:26 Room Air 06/27/17 16:16 98.6 78 18 114/58 (76) 96 06/27/17 16:00 82 06/27/17 14:35 83 14 96/66 (76) 95 Nasal Cannula 2 06/27/17 14:15 110 14 92/62 (72) 95 Nasal Cannula 2 06/27/17 14:11 98.2 77 14 89/54 (66) 94 Nasal Cannula 2 I/O 06/27/17 06/27/17 06/27/17 06/28/17 06/28/17 06/28/17 07:00 15:00 23:00 07:00 15:00 23:00 Intake Total 1000 ml 480 ml 400 ml 1480 ml Output Total 1005 ml 1200 ml Balance 1000 ml 480 ml -605 ml 280 ml Intake Oral 480 ml 480 ml IV Total 1000 ml 1000 ml Other 400 ml Output Urine Total 1000 ml 1200 ml Estimated Blood Loss 5 ml # Voids 2 # Bowel Movements 0 Result Diagram: 06/27/17 0428 06/28/17 0524 Objective Remarks GENERAL: Obese elderly male in no acute distress. HEENT: Normocephalic, atraumatic. Pupils equal, round and reactive. Extraocular movements intact. No scleral icterus. No injection or drainage. Oropharynx is clear. CARDIOVASCULAR: Irregularly irregular without murmurs, gallops, or rubs. RESPIRATORY: Clear to auscultation. No wheezes, rales, or rhonchi. Breathing is non-labored. GASTROINTESTINAL: Abdomen soft, non-tender, nondistended. No CVA tenderness. EXTREMITIES: No lower extremity edema. No calf tenderness. PSYCH: Alert and oriented x 3. Procedures Cystoscopy with left JJ stent insertion A/P Problem List: (1) Hypertension ICD Code: I10 - Essential (primary) hypertension (2) Urinary tract infection ICD Code: N39.0 - Urinary tract infection, site not specified Status: Acute (3) Sepsis ICD Code: A41.9 - Sepsis, unspecified organism Status: Acute (4) Urinary tract obstruction by kidney stone ICD Code: N20.0 - Calculus of kidney; N13.8 - Other obstructive and reflux uropathy Status: Acute Assessment and Plan 1. Sepsis secondary to MDR Escherichia coli urinary tract infection: Due to obstructing stone. Discussed with ID, switch to IV Ertapenem til 07/12. Arrange for C and midline. 2. Nephrolithiasis with obstruction: Patient presented with hematuria. Imaging shows obstructing stone. Status post Cystoscopy with left JJ stent insertion. Needs ESWL outpatient 3. Hypertension: Improved off losartan discontinue IV hydration 4. Azotemia: Secondary to urinary tract obstruction and dehydration. Improving with adequate oral intake discontinue IV fluids 5. Elevated lipase. Improved denies epigastric pain and tenderness 6. NIA. Continue C Pap 7. New onset atrial fibrillation. CHAds score of 2. Rate controlled at this time. Patient refuses to be on anticoagulation and wants to discuss with his PCP/cardiology in [place]. Follow-up echocardiogram unremarkable. TSH is low as well as free T3 and free T4 likely sick euthyroid. Start low-dose beta devonte DVT prophylaxis: SCDs, YUDI saavedra. No pharmacological agents 2/2 hematuria Discharge Planning Discharge when home health care visiting nurse for IV antibiotics arranged Problem Qualifiers (1) Urinary tract infection: Qualified Codes: N30.01 - Acute cystitis with hematuria (2) Sepsis: Qualified Codes: A41.9 - Sepsis, unspecified organism Nathanael Haas MD Jun 28, 2017 10:04
[2017-06-28] MEDS ORDERED: LEVOFLOXACIN 500 MG TAB PO SCH (11:00)
[2017-06-28 12:00] VITALS: BP 102/65; PULSE 85; PULSE 88; RESP 18; TEMP 98.9; O2SAT 94
[2017-06-28] MEDS ORDERED: METO25TA3 PO (13:43)
[2017-06-28 13:47] VITALS: PULSE 115
[2017-06-28] MEDS ORDERED: PILL SPLITTER OTHER PRN (14:15)
[2017-06-28] MEDS ORDERED: METOPROLOL TARTRATE 25 MG TAB PO SCH (14:30)
--- NOTE | 2017-06-28 15:03 | ECHRPT ---
Indication: A FIB FLUTTER CONCLUSIONS The left ventricular systolic function is normal with an estimated ejection fraction in the range of 60-65%. Trace aortic valve regurgitation. There is trace tricuspid valve regurgitation. BP: 107 / 66 HR: 83 Rhythm: MEASUREMENTS (Male / Female) Normal Values Technical Quality:Good 2D ECHO LV Diastolic Diameter PLAX 3.6 cm 4.2 - 5.9 / 3.9 - 5.3 cm LV Systolic Diameter PLAX 2.9 cm IVS Diastolic Thickness 1.6 cm 0.6 - 1.0 / 0.6 - 0.9 cm LVPW Diastolic Thickness 0.5 cm 0.6 - 1.0 / 0.6 - 0.9 cm LV Relative Wall Thickness 0.6 RV Internal Dim ED PLAX 3.0 cm LA Systolic Diameter LX 3.8 cm 3.0 - 4.0 / 2.7 - 3.8 cm DOPPLER AV Peak Velocity 189.0 cm/s AV Peak Gradient 14.3 mmHg LVOT Peak Velocity 123.0 cm/s LVOT Peak Gradient 6.1 mmHg Mitral E Point Velocity 83.9 cm/s Mitral A Point Velocity 56.3 cm/s Mitral E to A Ratio 1.5 TR Peak Velocity 227.3 cm/s TR Peak Gradient 20.7 mmHg FINDINGS LEFT VENTRICLE Normal left ventricular size. Nonobstructive prominent basal hypertrophy is present consistent with sigmoid septum. The left ventricular systolic function is normal with an estimated ejection fraction in the range of 60-65%. No regional wall motion abnormalities are present. RIGHT VENTRICLE Normal right ventricular size and systolic function. LEFT ATRIUM The left atrial size is normal. RIGHT ATRIUM The right atrial size is normal. ATRIAL SEPTUM Normal atrial septal thickness. AORTA The aortic root and proximal ascending aorta are normal in size on limited imaging. MITRAL VALVE Structurally normal mitral valve. No mitral valve stenosis or regurgitation. AORTIC VALVE Trileaflet aortic valve. No aortic valve stenosis. Trace aortic valve regurgitation. TRICUSPID VALVE Structurally normal tricuspid valve. No tricuspid valve stenosis. There is trace tricuspid valve regurgitation. PULMONARY VALVE The pulmonary valve is not well visualized. VESSELS The inferior vena cava is normal in size. PERICARDIUM No pericardial effusion. Justice Gimenez DO (Electronically Signed) Final Date:28 June 2017 15:02
--- NOTE | 2017-06-28 15:10 | PD.CARD.PN ---
Subjective Subjective Remarks No events overnight Did well with surgery Most of his heart rates controlled Afib Objective Medications Current Medications Medications (Trade) Dose Ordered Sig/Jenny Route Start Time Stop Time Status Last Admin (NS Flush) 2 ml UNSCH PRN IV FLUSH 06/24/17 10:15 (Tylenol) 650 mg Q4H PRN PO 06/24/17 13:30 06/25/17 20:44 (Zofran Inj) 4 mg Q6H PRN IVP 06/24/17 13:30 06/24/17 16:21 (Narcan Inj) 0.4 mg UNSCH PRN IV PUSH 06/24/17 13:30 (Oksana-Colace) 1 tab BID PO 06/24/17 21:00 06/28/17 08:05 (Milk Of Magnesia Liq) 30 ml Q12H PRN PO 06/24/17 13:30 (Senokot) 17.2 mg Q12H PRN PO 06/24/17 13:30 (Dulcolax Supp) 10 mg DAILY PRN RECTAL 06/24/17 13:30 (Lactulose Liq) 30 ml DAILY PRN PO 06/24/17 13:30 Potassium Chloride/Sodium Chloride 1,000 ml @ 100 mls/hr Q10H IV 06/24/17 14:30 06/28/17 06:04 Lactated Ringer's 1,000 ml @ 30 mls/hr Q24H PRN IV 06/26/17 05:45 06/29/17 05:44 Sodium Chloride 500 ml @ 30 mls/hr [id number] PRN IV 06/26/17 05:45 06/29/17 05:44 (Lopressor) 25 mg TITLE INSURANCE SALES REPRESENTATIVE PRN PO 06/26/17 05:45 06/29/17 05:44 (Betadine 5% Antisepsis Kit) 1 applic T[employer] INS[employer]ANCE SALES REPRESENTATIVE PRN EACH NARE 06/26/17 05:45 06/29/17 05:44 (Chlorhexidine 2% Cloth) 3 pack [employer] INS[employer]ANCE SALES REPRESENTATIVE PRN TOPICAL 06/26/17 05:45 06/29/17 05:44 (Neurontin) 1,500 mg HS PO 06/27/17 21:00 06/27/17 20:48 Ceftriaxone Sodium 1000 mg/ Sodium Chloride 100 ml @ 200 mls/hr Q24H IV 06/27/17 14:00 06/27/17 15:48 (Levaquin) 500 mg Q24H PO 06/28/17 11:00 06/28/17 11:18 (Lopressor) 12.5 mg Q12HR PO 06/28/17 14:30 (Pill Splitter) 1 ea UNSCH PRN OTHER 06/28/17 14:15 Vital Signs / I&O Vital Signs Date Time Temp Pulse Resp B/P (MAP) Pulse Ox O2 Delivery O2 Flow Rate FiO2 06/28/17 13:47 115 06/28/17 13:17 Room Air 06/28/17 12:00 98.9 88 18 102/65 (77) 94 06/28/17 12:00 85 06/28/17 09:21 Room Air 06/28/17 08:00 88 06/28/17 08:00 97.9 84 18 101/73 (82) 94 06/28/17 04:00 99.1 107 20 117/76 (90) 92 06/28/17 04:00 84 06/28/17 00:00 98.1 91 20 98/54 (69) 96 06/28/17 00:00 80 06/27/17 20:15 96 Room Air 06/27/17 20:00 84 06/27/17 20:00 97.8 109 18 109/84 (92) 95 06/27/17 16:26 Room Air 06/27/17 16:16 98.6 78 18 114/58 (76) 96 06/27/17 16:00 82 I/O 06/27/17 06/27/17 06/27/17 06/28/17 06/28/17 06/28/17 07:00 15:00 23:00 07:00 15:00 23:00 Intake Total 1000 ml 480 ml 400 ml 1480 ml Output Total 1005 ml 1200 ml Balance 1000 ml 480 ml -605 ml 280 ml Intake Oral 480 ml 480 ml IV Total 1000 ml 1000 ml Other 400 ml Output Urine Total 1000 ml 1200 ml Estimated Blood Loss 5 ml # Voids 2 # Bowel Movements 0 Physical Exam GENERAL: NAD, AAOx3 SKIN: Warm and dry. HEAD: Atraumatic. Normocephalic. EYES: Pupils equal and round. No scleral icterus. No injection or drainage. ENT: No nasal bleeding or discharge. Mucous membranes pink and moist. NECK: Trachea midline. No JVD. CARDIOVASCULAR: Irregularly irregular RESPIRATORY: No accessory muscle use. Clear to auscultation. Breath sounds equal bilaterally. GASTROINTESTINAL: Abdomen soft, non-tender, nondistended. Hepatic and splenic margins not palpable. MUSCULOSKELETAL: Extremities without clubbing, cyanosis, or edema. No obvious deformities. NEUROLOGICAL: Awake and alert. No obvious cranial nerve deficits. Motor grossly within normal limits. Five out of 5 muscle strength in the arms and legs. Normal speech. PSYCHIATRIC: Appropriate mood and affect; insight and judgment normal. Laboratory Laboratory Tests Test 06/28/17 05:24 Blood Urea Nitrogen 19 MG/DL Creatinine 0.94 MG/DL Random Glucose 106 MG/DL Calcium Level 9.3 MG/DL Magnesium Level 2.1 MG/DL Sodium Level 143 MEQ/L Potassium Level 3.6 MEQ/L Chloride Level 104 MEQ/L Carbon Dioxide Level 27.4 MEQ/L Anion Gap 12 MEQ/L Estimat Glomerular Filtration Rate 79 ML/MIN Assessment and Plan Problem List: (1) New onset a-fib ICD Codes: I48.91 - Unspecified atrial fibrillation (2) Hypertension ICD Codes: I10 - Essential (primary) hypertension (3) Urinary tract obstruction by kidney stone ICD Codes: N20.0 - Calculus of kidney; N13.8 - Other obstructive and reflux uropathy Status: Acute (4) Sepsis ICD Codes: A41.9 - Sepsis, unspecified organism Status: Acute (5) Urinary tract infection ICD Codes: N39.0 - Urinary tract infection, site not specified Status: Acute Assessment and Plan 1) UTI/Kidney stone S/p stenting per primary team/urology 2) New onset Afib Heart rates mostly controlled, plan to start on low dose BB CHADSVASc = 2 Discussed anti-coagulation, but with recent stenting and hematuria, wants to wait until getting back to [place] to decide, will talk with his PCP and consider seeing cardiology when he's back 3) EF normal, trace MR/TR on echo 4) Cardiovascularly stable for discharge, no further work up Problem Qualifiers (1) Sepsis: Qualified Codes: A41.9 - Sepsis, unspecified organism (2) Urinary tract infection: Qualified Codes: N30.01 - Acute cystitis with hematuria Justice Gimenez DO Jun 28, 2017 15:10
--- NOTE | 2017-06-28 15:23 | HHI.FF ---
cc: Jennifer Wills MD Infusion Therapy Location of Infusion Therapy: Home [facility] Care IV Infusion Order Patient Information Appointment Date: Jun 28, 2017 Patient Weight 124.3 kg Diagnosis: Diagnosis MDR E.coli bacteremia E.coli UTI/Pyelonephritis. Coded Allergies: No Known Allergies (Unverified , 06/24/17) Administer Medication Ertapenem 1 gram IV q 24 hours Start Treatment: Jun 28, 2017 Stop Treatment: Jul 12, 2017 Additional Information Venous access: Other (Midline) Additional Instructions [x] Peripheral flush and dressing changes per protocol [x] Implanted port and central millinery copyist: * Implanted port: 10 ml Normal Saline followed by 5 ml Heparin 100 units/ml Heparin flush after each use and monthly to maintain. [] May leave port accessed during therapy. [] May leave peripheral site accessed for duration of therapy. [x] If patient has SOB or respiratory distress, check oxygen saturation. If less than 90% or clinical signs of respiratory distress, administer oxygen at 2 L/min. via nasal cannula and notify physician. [x] Anaphylaxis/Reaction orders: * Stop infusion. * Keep IV line open with saline flush. * Notify physician. * Monitor vital signs every 15 minutes until symptoms resolve. * Check Oxygen saturation; Oxygen at 2 L/min. via nasal cannula if less than 90% or clinical signs of respiratory distress. * Administer diphenhydramine (Benadryl) 25 mg IV STAT, (unless patient has received as pre-med). May repeat once, if necessary. * Solu-Cortef 250 mg IVP over 30-60 seconds, use 100 mg vials for each dissolution. * Epinephrine (1mg/1 ml) 0.3 mg subcutaneously or IVP now with any signs of respiratory distress. * Check with physician for new additional pre-med orders if patient is re- challenged or re-treated. [x] May remove PICC line when treatment complete, after confirming with Physician. [x] If the patient is admitted to the hospital, the ED, or transferred via [facility] , complete transfer form including medication reconciliation order sheet. Laboratory Tests Weekly Labs: CBC w/diff, Creatinine, CRP, LFT's (Hepatic function test) Additional Information Please draw weekly labs, fax to number below and Call with abnormals, change in clinical condition or problems to: Dr.Reba Wills or Judith or Toshia BUCKLEY Physician Follow up appt: Patient to schedule follow up appt with Dr.Reba Wills within 10 days post discharge. Follow up with PCP Follow up with other MDs as planned. Counseling: Counseled about medication side effects Counseled about PICC line care and hand hygiene. Jonna Rosado MD Jun 28, 2017 15:23
[2017-06-28] MEDS ORDERED: EPIN1INJ21 SQ (15:34)
[2017-06-28] MEDS ORDERED: EPIN1INJ21 IV PUSH (15:34)
[2017-06-28] MEDS ORDERED: INVA1INJ IV (15:34)
[2017-06-28] MEDS ORDERED: SOLU250I IV PUSH (15:34)
--- NOTE | 2017-06-28 15:39 | HHI.FF ---
Face to Face Verification Diagnosis: (1) MDR E.coli bacteremia Home Health Nursing Order: Medical education Signs/symptoms of disease process Medication education-adverse effect Nursing assessment with vital signs IV medication administration I have seen patient Олег MinJr on 06/28/17. My clinical findings support the need for the requested home health care services because: Deconditioned w/ increased weakness I certify that my clinical findings support that this patient is homebound because: Post-op weakness Unsafe to leave home unassisted Poor cardiac reserve Nathanael Haas MD Jun 28, 2017 15:39
--- NOTE | 2017-06-28 15:40 | HHI.IDPN ---
Subjective Subjective Remarks Patient is a 72-year-old male, admitted to the hospital for further evaluation of persistent hematuria, and intermittent abdominal discomfort. He gives a history of previous prostate cancer and he had undergone prostatectomy. He has no prior problem with hematuria. He lives in [place], and his down here in [place] and he stays here for at least 2 months at a time about once a year. About 3 weeks ago, he started developing hematuria. He denies any problem with dysuria. About 56 days ago he started experiencing some abdominal discomfort in the suprapubic region. Also experience some chills and sweats, although he did not take his temperature. He had several episodes of vomiting several days prior to admission. He has chronic back pain, and has not really experience any worsening of his back pain. He has no prior history of hematuria, or history of kidney stone. Patient presented to the hospital, and since admission he has had fevers up to 103. Urinalysis did show presence of RBC and WBC. Urine culture is pending. 1 out of 2 blood culture has Escherichia coli. CT of the abdomen and pelvis showing an obstructing stone in the left UPJ. There was no mention of any hydronephrosis. Patient currently is still having some discomfort in the suprapubic region. He has not had any vomiting. Temperatures are down. His initial WBC was elevated , and it's improving. His creatinine is elevated. Infectious disease consultation has been requested to evaluate the patient with bacteremia Overnight events reviewed. case d.w and . Low grade fever yday Had stent placed No overnight fevers. BC and UC with E coli Antibiotics Current Medications Medications (Trade) Dose Ordered Sig/Jenny Route Start Time Stop Time Status Last Admin (NS Flush) 2 ml UNSCH PRN IV FLUSH 06/24/17 10:15 (Tylenol) 650 mg Q4H PRN PO 06/24/17 13:30 06/25/17 20:44 (Zofran Inj) 4 mg Q6H PRN IVP 06/24/17 13:30 06/24/17 16:21 (Narcan Inj) 0.4 mg UNSCH PRN IV PUSH 06/24/17 13:30 (Oksana-Colace) 1 tab BID PO 06/24/17 21:00 06/28/17 08:05 (Milk Of Magnesia Liq) 30 ml Q12H PRN PO 06/24/17 13:30 (Senokot) 17.2 mg Q12H PRN PO 06/24/17 13:30 (Dulcolax Supp) 10 mg DAILY PRN RECTAL 06/24/17 13:30 (Lactulose Liq) 30 ml DAILY PRN PO 06/24/17 13:30 Potassium Chloride/Sodium Chloride 1,000 ml @ 100 mls/hr Q10H IV 06/24/17 14:30 06/28/17 15:21 Lactated Ringer's 1,000 ml @ 30 mls/hr Q24H PRN IV 06/26/17 05:45 06/29/17 05:44 Sodium Chloride 500 ml @ 30 mls/hr [id number] PRN IV 06/26/17 05:45 06/29/17 05:44 (Lopressor) 25 mg LEASE PURCHASE TRUCK DRIVER PRN PO 06/26/17 05:45 06/29/17 05:44 (Betadine 5% Antisepsis Kit) 1 applic LE[employer] PURCHASE TRUCK DRIVER PRN EACH NARE 06/26/17 05:45 06/29/17 05:44 (Chlorhexidine 2% Cloth) 3 pack LE[employer]CHASE TRUCK DRIVER PRN TOPICAL 06/26/17 05:45 06/29/17 05:44 (Neurontin) 1,500 mg HS PO 06/27/17 21:00 06/27/17 20:48 (Lopressor) 12.5 mg Q12HR PO 06/28/17 14:30 (Pill Splitter) 1 ea UNSCH PRN OTHER 06/28/17 14:15 (ASP Crit: Path resist to other, cult proven) 1 UNSCH X1 PRN .XX 06/28/17 15:45 06/29/17 15:44 ([facility] Information) 1 UNSCH X1 PRN XX 06/28/17 15:45 06/29/17 15:44 Ertapenem 1000 mg/ Sodium Chloride 100 ml @ 200 mls/hr Q24H IV 06/28/17 16:00 Lines PIV Past Medical History Hypertension History of prostate cancer Past Surgical History Prostatectomy Tonsillectomy Allergies: Coded Allergies: No Known Allergies (Unverified , 06/24/17) Objective . Vital Signs Date Time Temp Pulse Resp B/P (MAP) Pulse Ox O2 Delivery O2 Flow Rate FiO2 06/28/17 13:47 115 06/28/17 13:17 Room Air 06/28/17 12:00 98.9 88 18 102/65 (77) 94 06/28/17 12:00 85 06/28/17 09:21 Room Air 06/28/17 08:00 88 06/28/17 08:00 97.9 84 18 101/73 (82) 94 06/28/17 04:00 99.1 107 20 117/76 (90) 92 06/28/17 04:00 84 06/28/17 00:00 98.1 91 20 98/54 (69) 96 06/28/17 00:00 80 06/27/17 20:15 96 Room Air 06/27/17 20:00 84 06/27/17 20:00 97.8 109 18 109/84 (92) 95 06/27/17 16:26 Room Air 06/27/17 16:16 98.6 78 18 114/58 (76) 96 06/27/17 16:00 82 . Laboratory Tests Test 06/27/17 04:28 White Blood Count 7.6 TH/MM3 Red Blood Count 4.44 MIL/MM3 Hemoglobin 14.2 GM/DL Hematocrit 40.3 % Mean Corpuscular Volume 90.9 FL Mean Corpuscular Hemoglobin 32.1 PG Mean Corpuscular Hemoglobin Concent 35.3 % Red Cell Distribution Width 15.1 % Platelet Count 163 TH/MM3 Mean Platelet Volume 8.1 FL Neutrophils (%) (Auto) 76.4 % Lymphocytes (%) (Auto) 13.7 % Monocytes (%) (Auto) 8.3 % Eosinophils (%) (Auto) 0.9 % Basophils (%) (Auto) 0.7 % Neutrophils # (Auto) 5.8 TH/MM3 Lymphocytes # (Auto) 1.0 TH/MM3 Monocytes # (Auto) 0.6 TH/MM3 Eosinophils # (Auto) 0.1 TH/MM3 Basophils # (Auto) 0.1 TH/MM3 CBC Comment DIFF FINAL Differential Comment Hematology Comments Laboratory Tests Test 06/27/17 04:28 06/28/17 05:24 Blood Urea Nitrogen 21 MG/DL 19 MG/DL Creatinine 1.01 MG/DL 0.94 MG/DL Random Glucose 92 MG/DL 106 MG/DL Calcium Level 8.3 MG/DL 9.3 MG/DL Magnesium Level 2.2 MG/DL 2.1 MG/DL Sodium Level 138 MEQ/L 143 MEQ/L Potassium Level 3.8 MEQ/L 3.6 MEQ/L Chloride Level 107 MEQ/L 104 MEQ/L Carbon Dioxide Level 23.9 MEQ/L 27.4 MEQ/L Anion Gap 7 MEQ/L 12 MEQ/L Estimat Glomerular Filtration Rate 72 ML/MIN 79 ML/MIN Microbiology Date/Time Source Procedure Growth Status 06/26/17 21:41 Blood Peripheral Aerobic Blood Culture - Preliminary NO GROWTH IN 2 DAYS Resulted 06/26/17 21:41 Blood Peripheral Anaerobic Blood Culture - Preliminary NO GROWTH IN 2 DAYS Resulted 06/26/17 21:35 Blood Peripheral Aerobic Blood Culture - Preliminary NO GROWTH IN 2 DAYS Resulted 06/26/17 21:35 Blood Peripheral Anaerobic Blood Culture - Preliminary NO GROWTH IN 2 DAYS Resulted Imaging Last Impressions Chest X-Ray 06/24/17 1014 Signed Impressions: Service Date/Time: Saturday, June 24, 2017 10:42 - CONCLUSION: Compensated cardiomegaly otherwise negative . Ayaz Salter MD FACR Abdomen/Pelvis CT 06/24/17 1009 Signed Impressions: Service Date/Time: Saturday, June 24, 2017 11:55 - CONCLUSION: Obstructing 1 cm stone left UVJ with moderate perinephric stranding. 1 cm stone remaining upper pole Bilateral renal cysts Ayaz Salter MD FACR Physical Exam GENERAL: Patient is an obese, well-developed male, awake and alert, not in respiratory distress. SKIN: Cool and dry. No generalized rash HEAD: Atraumatic. Normocephalic. No temporal wasting, or tenderness. EYES: [place] conjunctiva. No petechia or hemorrhage. Pupils equal, round and reactive to light. Extraocular movements full and intact. No scleral icterus. EARS, NOSE AND THROAT: Nose without bleeding or purulent nasal discharge. No sinus tenderness. Mucous membranes pink and moist. No oral lesions noted. NECK: Trachea midline. Supple and not tender, no meningeal signs CARDIOVASCULAR: Regular rate and rhythm. No murmurs, rubs or gallops heard RESPIRATORY: Clear to auscultation. Breath sounds equal bilaterally. No rales , wheezing or rhonchi. Decreased breath sounds at bases ABDOMEN: Soft, obese, mildly tender on R side, nondistended. Bowel sounds present and normoactive. No guarding. No rebound. No suprapubic tenderness. No organomegaly. EXTREMITIES: No clubbing, cyanosis, or edema. No joint effusion, has good ROM. No calf tenderness. Well perfused and warm. NEUROLOGICAL: Awake and alert. Cranial nerves grossly intact. Motor grossly within normal limits. PSYCHIATRIC: Normal affect, calm and cooperative. LINE: No evidence of infection Assessment & Plan Remarks IMPRESSION E coli sepsis, likely source - UA with blood and WBC, has obstructing stone on L, no hydro, ?early Hematuria, due to stone Hx prostate CA, S/P prostatectomy Renal insufficiency RECOMMENDATION DC Ceftriaxone and Levaquin. Start Ertapenem IV Will need home health arranged. Patient will stay in area till August. Has good support system: sisters. Midline consult today. d.w and patient/sisters. Follow up with other MDs, urology and Dr.Reba Wills. Will sign off please call back if any change in clinical condition or questions. Jonna Rosado MD Jun 28, 2017 15:40
[2017-06-28] MEDS ORDERED: MISCELLANEOUS PHARMACY INFORMATION XX PRN (15:45)
[2017-06-28] MEDS ORDERED: ASP: Path resistant to other antimicrobials, culture proven PRN (15:45)
[2017-06-28 16:00] VITALS: BP 110/75; PULSE 80; PULSE 83; RESP 18; TEMP 98; O2SAT 94
[2017-06-28] MEDS ORDERED: ERTAPENEM INJ 1,000 MG in SODIUM CHLORIDE 0.9% INJ 100 ML IV SCH (16:00)
--- NOTE | 2017-06-28 16:26 | HHI.DS ---
Discharge Summary Admission Date Jun 24, 2017 at 13:19 Discharge Date: Jun 28, 2017 Admitting Diagnosis Sepsis/UTI/Renal Stone (1) Hypertension ICD Code: I10 - Essential (primary) hypertension Diagnosis: Principal (2) Urinary tract infection ICD Code: N39.0 - Urinary tract infection, site not specified Diagnosis: Principal Status: Acute (3) Sepsis ICD Code: A41.9 - Sepsis, unspecified organism Diagnosis: Principal Status: Acute (4) Urinary tract obstruction by kidney stone ICD Code: N20.0 - Calculus of kidney; N13.8 - Other obstructive and reflux uropathy Diagnosis: Principal Status: Acute Procedures Cystoscopy with left JJ stent insertion Brief History - From Admission The patient is a 72-year-old male who is visiting from [place]. He stays here for 2 months at a time. He presented to the emergency department with complaint of blood in his urine that started about 2 weeks ago. He has had intermittent abdominal discomfort. This has been worsening over the past few days. He denies flank pain or dysuria. He denies history of kidney stones. He has had chills, but no fever. CBC/BMP: 06/27/17 0428 06/28/17 0524 Significant Findings Laboratory Tests Test 06/26/17 05:00 06/26/17 05:50 06/27/17 04:28 06/28/17 05:24 Red Blood Count 3.42 MIL/MM3 (4.50-5.90) 4.44 MIL/MM3 (4.50-5.90) Hemoglobin 11.3 GM/DL (13.0-17.0) Hematocrit 31.2 % (39.0-51.0) Mean Corpuscular Hemoglobin Concent 36.2 % (32.0-36.0) Neutrophils (%) (Auto) 78.5 % (16.0-70.0) 76.4 % (16.0-70.0) Monocytes (%) (Auto) 11.0 % (0.0-8.0) 8.3 % (0.0-8.0) Lymphocytes # (Auto) 0.9 TH/MM3 (1.0-4.8) Monocytes # (Auto) 1.0 TH/MM3 (0-0.9) Band Neutrophils % 19 % (0-6) Lymphocytes % 8 % (9-44) Neutrophils # (Manual) 8.1 TH/MM3 (1.8-7.7) Blood Urea Nitrogen 24 MG/DL (7-18) 21 MG/DL (7-18) 19 MG/DL (7-18) Calcium Level 7.9 MG/DL (8.5-10.1) 8.3 MG/DL (8.5-10.1) Estimat Glomerular Filtration Rate 58 ML/MIN (>89) 72 ML/MIN (>89) 79 ML/MIN (>89) Free Thyroxine 0.65 NG/DL (0.76-1.46) Free Triiodothyronine (T3) pg/dL 0.82 PG/ML (2.18-3.98) Thyroid Stimulating Hormone 3rd Gen 0.297 uIU/ML (0.358-3.740) Imaging Last Impressions Abdomen X-Ray 06/27/17 0000 Signed Impressions: Service Date/Time: June 13:53 - CONCLUSION: Left internal ureteral stent appears to be adequate in position. Mike Machuca MD Chest X-Ray 06/24/17 1014 Signed Impressions: Service Date/Time: Saturday, June 24, 2017 10:42 - CONCLUSION: Compensated cardiomegaly otherwise negative . Ayaz Salter MD FACR Abdomen/Pelvis CT 06/24/17 1009 Signed Impressions: Service Date/Time: Saturday, June 24, 2017 11:55 - CONCLUSION: Obstructing 1 cm stone left UVJ with moderate perinephric stranding. 1 cm stone remaining upper pole Bilateral renal cysts Ayaz Salter MD FACR PE at Discharge GENERAL: Obese elderly male in no acute distress. HEENT: Normocephalic, atraumatic. Pupils equal, round and reactive. Extraocular movements intact. No scleral icterus. No injection or drainage. Oropharynx is clear. CARDIOVASCULAR: Irregularly irregular without murmurs, gallops, or rubs. RESPIRATORY: Clear to auscultation. No wheezes, rales, or rhonchi. Breathing is non-labored. GASTROINTESTINAL: Abdomen soft, non-tender, nondistended. No CVA tenderness. EXTREMITIES: No lower extremity edema. No calf tenderness. PSYCH: Alert and oriented x 3. Hospital Course 1. Sepsis secondary to MDR Escherichia coli urinary tract infection: Due to obstructing stone. Discussed with ID, switch to IV Ertapenem til 07/12. Arrange for HHC and midline. 2. Nephrolithiasis with obstruction: Patient presented with hematuria. Imaging shows obstructing stone. Status post Cystoscopy with left JJ stent insertion. Needs ESWL outpatient 3. Hypertension: Improved off losartan discontinue IV hydration 4. Azotemia: Secondary to urinary tract obstruction and dehydration. Improving with adequate oral intake discontinue IV fluids 5. Elevated lipase. Improved denies epigastric pain and tenderness 6. NIA. Continue C Pap 7. New onset atrial fibrillation. CHAds score of 2. Rate controlled at this time. Patient refuses to be on anticoagulation and wants to discuss with his PCP/cardiology in [place]. Follow-up echocardiogram unremarkable. TSH is low as well as free T3 and free T4 likely sick euthyroid. Start low-dose beta devonte DVT prophylaxis: YUDI Martines. No pharmacological agents 2/2 hematuria Pt Condition on Discharge: Stable Discharge Disposition: Disch w/ Home Health Serv Discharge Time: > 30 minutes Discharge Instructions DIET: Follow Instructions for: Heart Healthy Diet Activities you can perform: Regular-No Restrictions Activities to Avoid: Driving Follow up Referrals: Appointment for Follow Up @ UROLOGY Appointment for Follow Up - 1 Week @ [facility] with Jennifer Wills Cardiology - 1 Week Cardiology @ CARDIOLOGY PCP Follow-up - 1 Week PCP Follow-up @ PRIMARY CARE Urology - 1 Week New Medications: Epinephrine Inj (Epinephrine Inj) 1 Mg/Ml (1 Ml) Inj 0.3 MG IV PUSH ONCE PRN for ALLERGIC REACTION, #1 VIAL Epinephrine Inj (Epinephrine Inj) 1 Mg/Ml (1 Ml) Inj 0.3 MG SQ ONCE PRN for ALLERGIC REACTION, #1 VIAL Give with any signs of respiratory distress. Ertapenem Inj (Invanz Inj) 1 Gm Addvial 1 GM IV Q24H for E coli MDR bacteremia for 13 Days, INJECTION 0 Refills ADMINISTER IN 100ML NS Hydrocortisone Inj (Solu-Cortef Inj) 250 Mg/2 Ml Inj 250 MG IV PUSH ONCE PRN for ALLERGIC REACTION, #1 VIAL 0 Refills Give over 30-60 seconds. Metoprolol Tartrate (Metoprolol Tartrate) 25 Mg Tab 12.5 MG PO Q12HR for Regulate Heart Beat, #30 TAB Continued Medications: Gabapentin (Gabapentin) 300 Mg Cap 1500 MG PO HS, #90 CAP 0 Refills Discontinued Medications: Losartan (Losartan) 25 Mg Tab 25 MG PO DAILY for Blood Pressure Management, TAB 0 Refills Meloxicam (Meloxicam) 7.5 Mg Tab 7.5 MG PO DAILY for Arthritis Pain, TAB 0 Refills Nathanael Haas MD Jun 28, 2017 16:25
== END 2017-06-28 19:25 | disposition home health service (06) | DRG 872 ==
LOC: NEPD 09:36 → NEDA 13:19 → N04A 16:06
PROVIDERS: ADMIT Internal Medicine; ATTEND Internal Medicine
PROC: 0T778DZ Dilation of Left Ureter with Intraluminal Device, Via Natural or Artificial Opening Endoscopic (ICD-10-PCS; principal; 2017-06-27 13:04)
DX: A41.51 Sepsis due to Escherichia coli [E. coli] (principal); N17.9 Acute kidney failure, unspecified; I48.92 Unspecified atrial flutter; I48.91 Unspecified atrial fibrillation; K76.0 Fatty (change of) liver, not elsewhere classified; N13.2 Hydronephrosis with renal and ureteral calculous obstruction; N28.1 Cyst of kidney, acquired; E86.0 Dehydration; N30.01 Acute cystitis with hematuria; I10 Essential (primary) hypertension; N13.9 Obstructive and reflux uropathy, unspecified; G47.33 Obstructive sleep apnea (adult) (pediatric); E07.81 Sick-euthyroid syndrome; R74.8 Abnormal levels of other serum enzymes; I25.10 Atherosclerotic heart disease of native coronary artery without angina pectoris; I25.84 Coronary atherosclerosis due to calcified coronary lesion; Z16.24 Resistance to multiple antibiotics; E66.9 Obesity, unspecified; Z68.36 Body mass index [BMI] 36.0-36.9, adult; Z85.46 Personal history of malignant neoplasm of prostate; Z90.79 Acquired absence of other genital organ(s)
CPT/HCPCS: 36569; 71045; 74018; 74177; 76937; 80048; 80053; 81001; 83605; 83690; 83735; 84439; 84443; 84481; 85007; 85025; 85027; 85610; 85730; 87040; 87077; 87086; 87186; 87205; 93005; 93306; 96361; 96365; 96375; 99211; C1769; G0463; J0131; J0696; J1335; J1956; J2370; J2405; J2543; J2710; J3010; J3370; J3480; J7030; J7040; J7050; J7120; Q9967

== ENCOUNTER → 2017-07-10 | Day surgery (SDC) | payer MEDICARE, OTHER ==
[~2017-07-10] VITALS: Ht 185.4 cm; Wt 124.2 kg
[~2017-07-10] MED LIST: ATOR20TA15 PO; CHLORHEXIDINE GLUCONATE 2 % 1 PACK (2 CLOTHS) TOPICAL PRN; DEXAMETHASONE SOD PHOS 4 MG/ML VIAL IV ONE; DO NOT ADM ANY ANTICOAGULANT DRUGS PRN; EPIN1INJ21 IV PUSH; EPIN1INJ21 SQ; GABA300C5 PO; INVA1INJ IV; LACTATED RINGER'S 1000 ML INJ 1,000 ML IV ONE; LACTATED RINGER'S 1000 ML IV PRN; LIDOCAINE HCL 1% PF 5 ML SYRINGE OTHER ONE; METO25TA3 PO; METOPROLOL TARTRATE 25 MG TAB PO PRN; MORPHINE SULFATE 2 MG/ML INJ IV PRN; ONDANSETRON HCL 4 MG/2 ML VIAL IV ONE; ONDANSETRON HCL 4 MG/2 ML VIAL IV PUSH PRN; PHENYLEPH/NS 1000 MCG/10 ML SYR IV ONE; POVIDONE IODINE 5% (ANTISEPSIS KIT) 4 APPLICATIONS EACH NARE PRN; PROPOFOL 200 MG/20 ML AMP IV ONE; SODIUM CHLORID 0.9% 500 ML IV PRN; SOLU250I IV PUSH; ceFAZolin 1,000 MG/NS 100 ML IV SCH; oxyCODONE/ACETAMINOPHEN 5 MG/325 MG TAB PO PRN
--- NOTE | 2017-07-10 09:30 | RADRPT ---
EXAM DATE/TIME: 07/10/2017 08:33 [place] COMPARISON: ABDOMEN KUB ONLY, June 27, 2017, 13:53. INDICATIONS : Pre op for lithotripsy. MEDICAL HISTORY : Kidney stone Hypertension. Carcinoma, prostate. SURGICAL HISTORY : Prostatectomy. ENCOUNTER: Initial ACUITY: 1 day PAIN SCORE: 0/10 LOCATION: Abdomen. FINDINGS: There is a ureteral stent in place on the left. No definite stones are seen along the course of the s tent. The bowel gas pattern is within normal limits there There are advanced degenerative changes of the facet joints of the lower lumbar spine. CONCLUSION: Ureteral stent in good position. No definite stone seen. Advanced degenerative changes in the lower lumbar spine. Dago Salter MD on July 10, 2017 at 9:25 Board Certified Radiologist. This report was verified electronically.
--- NOTE | 2017-07-10 11:03 | PD.OP ---
Operative Report Date of Surgery: Jul 10, 2017 Preoperative Diagnosis: 1 cm left UPJ stone Postoperative Diagnosis: Same Procedure: Left extraportal shockwave lithotripsy Anesthesia: General LMA Surgeon: Donnie Reina Psychologists(s): None Resident Surgeon: none Operation and Findings: 72 year-old male with a history of urosepsis due to obstructing left UPJ stone measuring 1 cm in size. Patient underwent cystoscopy with left double-J stent insertion approximately 2 weeks ago and has been receiving IV antibiotics. Decision was made for the patient to undergo left extraportal shockwave lithotripsy. Risk and benefits were discussed preoperatively and he was willing to proceed. Patient is brought to the operating room and placed on the operating table in the supine position. He received preprocedure antibiotics and general LMA anesthesia was administered. Under fluoroscopic and ultrasound imaging guidance the stone was visualized in the area of the left UPJ. ESWL therapy commenced with the patient receiving a total 2500 shocks. Good fragmentation of the stone was visualized under ultrasound imaging guidance. The patient tolerated the procedure well. He was transferred to the recovery room in stable condition. He will follow-up in 2-4 weeks and obtain a CT scan of the abdomen and pelvis prior to his appointment. If the stone burden has cleared, he will undergo cystoscopy with stent pull in the office. Donnie Reina DO Jul 10, 2017 11:03
[2017-07-10 12:30] VITALS: BP 107/65; PULSE 68; RESP 18; TEMP 98.5; O2SAT 98
== END | disposition home or self-care (01) ==
LOC: HSDC 07:53
PROVIDERS: ATTEND Urology
DX: N20.1 Calculus of ureter (principal); I10 Essential (primary) hypertension; N17.9 Acute kidney failure, unspecified; Z86.19 Personal history of other infectious and parasitic diseases
CPT/HCPCS: 00872; 50590; 74018; J0690; J1100; J2370; J2405; J7120